=== PATIENT | female | born 1935 | race Caucasian/White ===

== ENCOUNTER 2022-01-03 07:09 | Outpatient (REF) | payer MEDICARE, BC, SELFPAY ==
[2022-01-03 11:18] LABS: MANUAL DIFF FLAG NO
[2022-01-03 11:23] LABS: Basophils Percent Auto 0.4 % (0-2); Eosinophils Absolute Auto 0.3 X10*3/uL (0.0-0.4); Eosinophils Percent Auto 3.3 % (0-4); Hematocrit 42.7 % (37.0-47.0); Hemoglobin 13.6 g/dl (12.0-16.0); Imm Gran Abs Auto 0.05 X10*3/uL (0.00-0.03); Imm Gran Pct Auto 0.6 % (0.0-0.4); Lymphocytes Absolute Auto 2.9 X10*3/uL (1.2-4.9); Lymphocytes Percent Auto 33.8 % (20-40); Mean Corpuscular HGB Conc 31.9 g/dl (31.0-35.0); Mean Corpuscular Hemoglobin 28.8 pg (27.0-33.0); Mean Corpuscular Volume 90.5 fL (80.0-98.0); Mean Platelet Volume 10.2 fL (9.4-12.3); Monocytes Absolute Auto 0.8 X10*3/uL (0.1-1.2); Monocytes Percent Auto 9.2 % (2-11); Neutrophils Absolute Auto 4.5 x10*3/uL (2.0-8.3); Neutrophils Percent Auto 52.7 % (45-73); Platelet Count 359 X10*3/uL (160-400); Red Blood Count 4.72 X10*6/uL (4.20-5.50); White Blood Count 8.5 X10*3/uL (4.8-10.8)
[2022-01-03 11:48] LABS: Alanine Aminotransferase 51 U/L (0-31); Alkaline Phosphatase 93 U/L (39-117); Anion Gap 11 (12-20); Aspartate Amino Transferase 36 U/L (5-31); Bilirubin Total 0.5 mg/dL (0.0-1.0); Blood Urea Nitrogen 10 mg/dL (9-16); Carbon Dioxide 26 mmol/L (22-29); Chloride 103 mmol/L (96-108); Cholesterol 210 mg/dL; Estimated Glomerular Filt Rate 57; Glucose Fasting 97 mg/dL (60-99); HDL Cholesterol 34 mg/dL; LDL Cholesterol Calculated 127 mg/dl; Potassium 4.8 mmol/L (3.3-5.1); Sodium 135 mmol/L (135-145); Total Protein 6.3 g/dL (6.5-8.0); Triglycerides 246 mg/dL
[2022-01-03 11:59] LABS: TSH reflex Free T4 1.62 uIU/mL (0.32-4.0)
[2022-01-03 12:10] LABS: Erythrocyte Sedimentation Rate 13 MM/HR (0-20)
== END 2022-01-03 07:10 | disposition home or self-care (01) ==
LOC: HO.WFDLDS 07:09
PROVIDERS: Visit Provider Family Medicine
DX: Z00.00 Encounter for general adult medical examination without abnormal findings (principal); R42 Dizziness and giddiness
CPT/HCPCS: 36415; 80053; 80061; 84443; 85025; 85652; 86141

== ENCOUNTER 2022-01-05 09:29 | Outpatient (REF) | payer MEDICARE, BC, SELFPAY ==
[2022-01-05 10:55] LABS: Appearance Urine HAZY; Color Urine YELLOW; Glucose Urine UA NEG (NEG); Leukocyte Esterase Urine 3+ (NEG); Nitrite Urine NEG (NEG); PH 7.5 (5.0-8.0); Specific Gravity - Urine 1.015 (1.005-1.025); Urine Blood NEG (NEG); Urine Ketones NEG (NEG); Urine Protein NEG (NEG-TRACE)
[2022-01-05 11:15] LABS: RBC Urine 0 /HPF (0); Squamous Epithelial Cell Urine 4+ /LPF
[2022-01-05 11:16] LABS: Bacteria Urine 1+ /LPF
== END 2022-01-05 09:30 | disposition home or self-care (01) ==
LOC: HO.WFDLNP 09:29
PROVIDERS: Visit Provider Family Medicine
DX: Z00.00 Encounter for general adult medical examination without abnormal findings (principal)
CPT/HCPCS: 81001

== ENCOUNTER 2022-02-23 15:58 | Outpatient (REF) | payer MEDICARE, BC, SELFPAY | END 2022-02-23 15:59 | disposition home or self-care (01) | LOC: HO.LAB 15:58 | PROVIDERS: Visit Provider Family Medicine | DX: Z13.89 Encounter for screening for other disorder (principal) ==

== ENCOUNTER 2022-05-10 08:18 | Outpatient (REF) | payer MEDICARE, BC, SELFPAY ==
[2022-05-10 12:15] LABS: Alanine Aminotransferase 36 U/L (0-31); Albumin Level 4.1 g/dL (3.5-5.0); Alkaline Phosphatase 86 U/L (39-117); Anion Gap 13 (12-20); Aspartate Amino Transferase 27 U/L (5-31); Bilirubin Total 0.7 mg/dL (0.0-1.0); Blood Urea Nitrogen 10 mg/dL (9-16); Calcium 9.4 mg/dL (8.4-10.2); Carbon Dioxide 26 mmol/L (22-29); Chloride 102 mmol/L (96-108); Estimated Glomerular Filt Rate > 60; Glucose Random 96 mg/dL (60-115); Potassium 4.7 mmol/L (3.3-5.1); Sodium 136 mmol/L (135-145); Total Protein 6.5 g/dL (6.5-8.0)
== END 2022-05-10 08:19 | disposition home or self-care (01) ==
LOC: HO.WFDLDS 08:18
PROVIDERS: Visit Provider Family Medicine
DX: R74.8 Abnormal levels of other serum enzymes (principal)
CPT/HCPCS: 36415; 80053

== ENCOUNTER 2022-05-18 12:02 | Outpatient (REF) | payer MEDICARE, BC, SELFPAY | END 2022-05-18 12:03 | disposition home or self-care (01) | LOC: HO.LAB 12:02 | PROVIDERS: Visit Provider Family Medicine | DX: Z13.89 Encounter for screening for other disorder (principal) ==

== ENCOUNTER 2022-06-07 08:12 | Outpatient (REF) | payer MEDICARE, BC, SELFPAY ==
[2022-06-07 12:05] LABS: Appearance Urine Clear; Color Urine Yellow; Glucose Urine UA Negative (Negative); Leukocyte Esterase Urine Negative (Negative); Nitrite Urine Negative (Negative); Urine Blood Negative (Negative); Urine Ketones Negative (Negative); Urine Protein Negative (Neg-Trace)
== END 2022-06-07 08:13 | disposition home or self-care (01) ==
LOC: HO.WFDLNP 08:12
PROVIDERS: Visit Provider Family Medicine
DX: Z00.00 Encounter for general adult medical examination without abnormal findings (principal); R82.71 Bacteriuria
CPT/HCPCS: 81003; 87086

== ENCOUNTER 2022-08-22 07:26 | Outpatient (REF) | payer MEDICARE, BC, SELFPAY ==
[2022-08-22 12:22] LABS: Alanine Aminotransferase 27 U/L (0-31); Albumin Level 4.1 g/dL (3.5-5.0); Alkaline Phosphatase 92 U/L (39-117); Anion Gap 14 (12-20); Aspartate Amino Transferase 23 U/L (5-31); Bilirubin Total 0.7 mg/dL (0.0-1.0); Blood Urea Nitrogen 9 mg/dL (9-16); Calcium 9.3 mg/dL (8.4-10.2); Carbon Dioxide 24 mmol/L (22-29); Chloride 103 mmol/L (96-108); Estimated Glomerular Filt Rate 58; Glucose Random 89 mg/dL (60-115); Potassium 4.8 mmol/L (3.3-5.1); Sodium 136 mmol/L (135-145); Total Protein 6.5 g/dL (6.5-8.0)
== END 2022-08-22 07:27 | disposition home or self-care (01) ==
LOC: HO.WFDLDS 07:26
PROVIDERS: Visit Provider Family Medicine
DX: R74.8 Abnormal levels of other serum enzymes (principal)
CPT/HCPCS: 36415; 80053

== ENCOUNTER 2023-03-01 08:57 | Outpatient (AMB) | payer MEDICARE, BC, SELFPAY ==
[2023-03-01 09:09] VITALS: BP 118/62; PULSE 81; O2SAT 96; BMI 27.8
--- NOTE | 2023-03-01 09:09 | A.OFFPC_ITS ---
Vital Signs 03/01/23 09:09 Height 5 ft 6 in Weight 172 lb 6 oz BMI 27.8 BP 118/62 Blood Pressure Location Lt brachial Position Sitting Pulse 81 Pulse Source Pulse Oximeter Pulse Oximetry (%) 96 Oxygen Delivery Method Room Air Intake Visit Reasons: f/u chronic conditions Intake Note: Patient is here for follow up on chronic conditions. Allergies No Known Allergies Allergy (Verified 03/01/23 09:11) Tobacco use date assessed: 03/01/23 Fall risk assessment: No Falls in past year Last assessed Fall Risk: 03/01/23 Dental Screening Dental Screen Date: 03/01/23 Did you have a dental visit in the last 12 months?: Yes Did you have a dental problem in the last 6 months where you did not have access to dental care?: No Was dental information given to patient?: Patient has dentist HPI f/u chronic conditions HPI Details Pt presents to f/u chronic conditions. Blood pressure today 118/62. [facility] Medical History Polio Surgical History History of hip replacement Social History Housing: House Patient Tobacco Use Status: Never used Tobacco e-Cigarette/Vaping Use: Never Used Second Hand Smoke Exposure: No service: No Current occupational status: retired Current occupational exposures/hazards: No Cognitive needs: No Hearing needs: No Vision needs: No Questionnaire PHQ-9 Over the last 2 weeks, how often have you been bothered by any of the following problems? 1. Little interest or pleasure in doing things: not at all 2. Feeling down, depressed, or hopeless: not at all 3. Trouble falling or staying asleep, or sleeping too much: not at all 4. Feeling tired or having little energy: not at all 5. Poor appetite or overeating: not at all 6. Feeling bad about yourself - or that you are a failure or have let yourself or your family down: not at all 7. Trouble concentrating on things, such as reading the newspaper or watching television: not at all 8. Moving or speaking so slowly that other people could have noticed. Or the opposite - being so fidgety or restless that you have been moving around a lot more than usual: not at all 9. Thoughts that you would be better off or of hurting yourself in some way: not at all Total score: 0 Source: Developed by Drs. Car Hayward, Óscar Patterson and colleagues, with an educational neil from [employer]. Thrive Questionnaire Date Thrive assessed: 07/20/22 I am a: Patient What is your living situation today?: I have a steady place to live Within the past 12 months, did the food you bought not last and you didn't have the money to get more?: Never true Within the past 12 months, did you worry whether your food would run out before you got money to buy more?: Never true Do you have trouble paying for medicines?: No Do you have trouble getting transportation to medical appointments?: No Do you have trouble paying your heating and electricity bill?: No Do you have trouble taking care of your child, family member or friend?: No Do you have trouble with day-to-day activities such as bathing, preparing meals, shopping, managing finances, etc.?: No Are you currently unemployed and looking for a job?: No Are you interested in more education?: No AUDIT C Alcohol Use Questionnaire (AUDIT-C) 1. How often do you have a drink containing alcohol?: Never 3. How often do you have six or more drinks on one occasion?: Never Total Score: 0 QUINN-7 AMB Questionnaire QUINN-7 Date QUINN - 7 assessed: 03/01/23 Feeling nervous, anxious, or on edge: 0 = Not at all Not being able to stop or control worryin = Not at all Worrying too much about different things: 0 = Not at all Trouble relaxin = Not at all Being so restless that it is hard to sit still: 0 = Not at all Becoming easily annoyed or irritable: 0 = Not at all Feeling afraid as if something awful might happen: 0 = Not at all Total QUINN-7 score (0-4 normal; 5-9 mild; 10-14 moderate; 15-21 severe): 0 Source: Developed by Ingrid Forbes Kurt Kroenke and colleagues, with an educational neil from [employer]. Review of Systems Const Denies chills, Denies fatigue, Denies fever(s), Denies headache(s) and Denies weakness ENT Denies dizziness and Denies headache(s) Card Denies chest pain, Denies lightheadedness, Denies dyspnea and Denies other (Palpitations) Resp Denies cough, Denies dyspnea, Denies wheezing and Denies other ( shortness of breath) Musc Denies numbness and Denies tingling Neuro Denies dizziness, Denies headache(s), Denies numbness, Denies tingling, Denies paresthesias and Denies weakness Psych Denies anxiety and Denies depression Endo Denies fatigue Aller/Immun Denies wheezing Physical exam (Primary Care) Vital Signs: Last Vital Signs Pulse 81 03/01/23 09:09 BP 118/62 03/01/23 09:09 Pulse Ox 96 03/01/23 09:09 Oxygen Delivery Method Room Air 03/01/23 09:09 BMI result Body Mass Index 27.8 Tobacco/Smoking Status: Tobacco use Status Tobacco use date assessed 03/01/23 03/01/23 09:12 Patient Tobacco Use Status Never used Tobacco 03/01/23 09:12 e-Cigarette/Vaping Use Never Used 03/01/23 09:12 PHQ-9: PHQ-9 Score PHQ-9: Total score 0 03/01/23 09:40 Thrive Assessment: Date of Thrive Assessment Date Thrive assessed 07/20/22 03/01/23 09:12 Const General: no acute distress and well developed Nutritional Appearance: well nourished Orientation/consciousness: patient oriented x3 HENMT Head: Yes normocephalic and Yes atraumatic Eyes General: appearance normal, both eyes and all related structures Pupils: Equal, round and reactive pupils present EOM: EOMs intact bilaterally Resp Effort & Inspection: normal respiratory effort Auscultation: clear to auscultation bilaterally Cardio Rate: regular rate Rhythm: regular rhythm Heart sounds: S1 normal heart sound present, S2 normal heart sound present, no gallops, no murmurs and no rubs Neuro General: patient oriented x3 and gait normal Cranial nerves: Yes Equal, round and reactive pupils present Psych Affect: normal affect Assessment and Plan Assessment & Plan (1) Hypertension: Code(s): I10 - Essential (primary) hypertension Plan: Patient has lost weight and blood pressure remains well controlled off any medications. Continue weight control, healthy diet low in salt/sodium and exercise as tolerated (2) Elevated liver enzymes: Code(s): R74.8 - Abnormal levels of other serum enzymes Plan: Liver enzymes had normalized at last check. She had lost significant amount of weight Continue weight control (3) Back pain: Code(s): M54.9 - Dorsalgia, unspecified Plan: History of some back pain which affects her walking Offered physical therapy but she declines at this time She will let me know if she wants to start physical therapy (4) Shortness of breath: Code(s): R06.02 - Shortness of breath Plan: Mild shortness of breath with exertion - this is a longstanding and not associated with any chest pain, weakness, dizziness or diaphoresis. Continue exercise as tolerated She will let me know if anything changes or she has any new concerns. Orders: Orders Comprehensive Powell. Panel Fast Today Z00.00 - Encounter for general adult medical examination without abnormal findings Lipid Panel Today Z00.00 - Encounter for general adult medical examination without abnormal findings TSH reflex Free T4 Today Z00.00 - Encounter for general adult medical examination without abnormal findings Microalbumin, Random (w Creat) Today I10 - Essential (primary) hypertension Complete Blood Count Auto Diff Today Z00.00 - Encounter for general adult medical examination without abnormal findings UA and rflx microscopic Today Z00.00 - Encounter for general adult medical examination without abnormal findings Coding Level of Care Code Est Pt Level 4 (06612) Diagnoses Hypertension I10 Elevated liver enzymes R74.8 Back pain M54.9 Shortness of breath R06.02
== END 2023-03-01 09:55 | disposition home or self-care (01) ==
PROVIDERS: PCP Family Medicine; Visit Provider Family Medicine
DX: I10 Essential (primary) hypertension (principal); R74.8 Abnormal levels of other serum enzymes; M54.9 Dorsalgia, unspecified; R06.02 Shortness of breath
CPT/HCPCS: 99214

== ENCOUNTER 2023-03-08 08:28 | Outpatient (REF) | payer MEDICARE, BC, SELFPAY ==
[2023-03-08 11:36] LABS: MANUAL DIFF FLAG NO
[2023-03-08 12:07] LABS: Appearance Urine Cloudy; Color Urine Yellow; Glucose Urine UA Negative (Negative); Leukocyte Esterase Urine Moderate (2+) (Negative); Nitrite Urine Negative (Negative); UMIC TRIGGER UA YES; Urine Blood Negative (Negative); Urine Ketones Negative (Negative); Urine Protein Trace mg/dL (Neg-Trace)
[2023-03-08 12:08] LABS: Basophils Percent Auto 0.4 % (0-2); Eosinophils Absolute Auto 0.2 X10*3/uL (0.0-0.4); Eosinophils Percent Auto 3.1 % (0-4); Hematocrit 42.3 % (37.0-47.0); Hemoglobin 13.8 g/dl (12.0-16.0); Imm Gran Abs Auto 0.04 X10*3/uL (0.00-0.03); Imm Gran Pct Auto 0.5 % (0.0-0.4); Lymphocytes Absolute Auto 2.5 X10*3/uL (1.2-4.9); Lymphocytes Percent Auto 31.5 % (20-40); Mean Corpuscular HGB Conc 32.6 g/dl (31.0-35.0); Mean Corpuscular Hemoglobin 28.6 pg (27.0-33.0); Mean Corpuscular Volume 87.8 fL (80.0-98.0); Mean Platelet Volume 9.8 fL (9.4-12.3); Monocytes Absolute Auto 0.7 X10*3/uL (0.1-1.2); Monocytes Percent Auto 9.3 % (2-11); Neutrophils Absolute Auto 4.3 x10*3/uL (2.0-8.3); Neutrophils Percent Auto 55.2 % (45-73); Platelet Count 374 X10*3/uL (160-400); Red Blood Count 4.82 X10*6/uL (4.20-5.50); Red Cell Distribution Width 14.2 % (11.0-16.0); White Blood Count 7.8 X10*3/uL (4.8-10.8)
[2023-03-08 12:10] LABS: Bacteria Urine 4+ (None Seen); Hyaline Casts Urine 0-2 /LPF (0-2); RBC Urine 0-2 /HPF (0-2); Squamous Epithelial Cell Urine >20 /HPF (0-2); WBC Urine >50 /HPF (0-5)
[2023-03-08 12:37] LABS: Alanine Aminotransferase 20 U/L (0-31); Albumin Level 4.1 g/dL (3.5-5.0); Alkaline Phosphatase 78 U/L (39-117); Anion Gap 12 (12-20); Aspartate Amino Transferase 19 U/L (5-31); Bilirubin Total 0.7 mg/dL (0.0-1.0); Blood Urea Nitrogen 12 mg/dL (9-16); Calcium 9.6 mg/dL (8.4-10.2); Carbon Dioxide 24 mmol/L (22-29); Chloride 104 mmol/L (96-108); Cholesterol 223 mg/dL (<200); Estimated Glomerular Filt Rate 59; Glucose Fasting 92 mg/dL (60-99); HDL Cholesterol 40 mg/dL (>40); LDL Cholesterol Calculated 139 mg/dL (<100); Potassium 4.3 mmol/L (3.3-5.1); Sodium 136 mmol/L (135-145); TSH reflex Free T4 1.55 uIU/mL (0.32-4.0); Total Protein 6.7 g/dL (6.5-8.0); Triglycerides 224 mg/dL (<150)
[2023-03-08 13:14] LABS: Creatinine Urine 159.78 mg/dL; Microalbum/Creatinine Ratio Ur 16.8 ug/mg cr (<30)
== END 2023-03-08 08:29 | disposition home or self-care (01) ==
LOC: HO.WFDLDS 08:28
PROVIDERS: Visit Provider Family Medicine
DX: Z00.00 Encounter for general adult medical examination without abnormal findings (principal); I10 Essential (primary) hypertension
CPT/HCPCS: 36415; 80053; 80061; 81001; 82043; 82570; 84443; 85025

== ENCOUNTER 2024-10-06 05:01 | Inpatient (IN) | payer MEDICARE, BC, SELFPAY ==
[2024-10-06] VITALS (7 sets, daily range): BP systolic 178–199; BP diastolic 80–88; PULSE 87–105; RESP 16–20; TEMP 36.2–36.8; O2SAT 93–96; BMI 29.4; BMI 28.2
--- NOTE | ~2024-10-06 | CT_ITS ---
CLINICAL HISTORY: Stroke Protocol - LEFT SIDED WEAKNESS CT head without contrast Comparison: None Findings: No intra-axial mass, midline shift, hydrocephalus, or acute hemorrhage. No significant atrophy-like change or white matter disease. There is no sinus or mastoid fluid. The orbits are unremarkable. There is no acute fracture. IMPRESSION: 1. No acute intracranial findings. This document has been electronically signed by: Hector Davis MD on 10/06/2024 05:19:10
--- NOTE | ~2024-10-06 | US_ITS ---
CLINICAL HISTORY: swelling and pain at iv site Venous duplex ultrasound right upper extremity Comparison: None Findings: Accessible deep venous segments are fully compressible with normal Doppler color flow and spectral tracings. IMPRESSION: 1. Negative for right upper extremity deep vein thrombosis. This document has been electronically signed by: Hector Davis MD on 10/06/2024 08:51:30
--- NOTE | ~2024-10-06 | CT_ITS ---
CLINICAL HISTORY: Stroke Protocol:left sided weakness CT angiography head and neck with contrast. 3D Postprocessing. Comparison: None Findings: Aortic arch and cervical great vessels are patent with no aneurysm, dissection, hemodynamically significant stenoses, or occlusion. Intracranial arteries are patent. No aneurysm, dissection, hemodynamically significant stenoses, or occlusion. No abnormal intracranial enhancement. The visualized thyroid gland is unremarkable. No cervical mass or fluid collection. Lung apices clear. No acute fracture. IMPRESSION: Patent head and neck CTA. This document has been electronically signed by: Hector Davis MD on 10/06/2024 06:12:04
--- NOTE | ~2024-10-06 | MR_ITS ---
CLINICAL HISTORY: L weakness, CVA MR Brain without gadolinium Comparison: None Findings: There is a small, faint focus of restricted diffusion involving the lateral right thalamus. There is corresponding low signal on the ADC map. There is mild T2 signal prolongation within this region. Additional patchy scattered T2 signal prolongation. No intra-axial mass or hemorrhage. No midline shift. No hydrocephalus. Vascular flow voids are intact. The orbits are normal. The sinuses and mastoid air cells are unremarkable. No focal bone lesion. IMPRESSION: There is a small focal , late acute infarct involving the right thalamus. Moderate ischemic microangiopathy and volume loss. No intracranial hemorrhage identified. This document has been electronically signed by: Bk Gayle MD on 10/06/2024 10:58:01
--- NOTE | 2024-10-06 05:02 | ECG_ITS ---
Test Reason : STROKE ALERT Blood Pressure : */* mmHG Vent. Rate : 101 BPM Atrial Rate : 101 BPM P-R Int : 164 ms QRS Dur : 130 ms QT Int : 410 ms P-R-T Axes : 59 -50 112 degrees QTcB Int : 531 ms Sinus tachycardia Left axis deviation Left bundle branch block Abnormal ECG No previous ECGs available Referred By: Jorge Luis Jaeger Electronically Signed By: Ghulam Bryant
[2024-10-06] MEDS: iohexoL 350 MG/ML 100 ML INFUS..BTL 70 ML IV (05:13)
--- NOTE | 2024-10-06 05:22 | ED.NEUROSD ---
HPI - Neuro Symptoms/Deficit General Chief Complaint: Stroke Stated Complaint: stroke Time Seen by Provider: 10/06/24 05:02 Source: patient Mode of arrival: ambulatory Limitations: no limitations History of Present Illness ED Provider: HPI Narrative: Patient with no significant past medical history does not take any medication since 14:00 10/05/2024 patient noticed slight weakness of the left side patient's thought it will get better was able to ambulate initially went to sleep woke up at 02:00 and unable to walk because of significant left-sided weakness unable to hold her weight on the left side also has weakness of the face in the left side and left upper extremity no headache patient does not take any blood thinner Related Data Home Medications ?Medication ?Instructions ?Recorded ?Confirmed No Known Home Meds 03/01/23 03/01/23 Allergies Allergy/AdvReac Type Severity Reaction Status Date / Time No Known Allergies Allergy Verified 10/06/24 05:08 Review of Systems Review of Systems: Yes all other systems are reviewed and are negative PMFSH Past Medical History Medical History Polio Surgical History History of hip replacement Social History Social History Housing: House Patient Tobacco Use Status: Never used Tobacco Smoked in Last 30 Days: No e-Cigarette/Vaping Use: Never Used Second Hand Smoke Exposure: No Use of substances other than those prescribed or required for medical reasons: No Advance Directives: No Advance Directives Information Provided: Yes service: No Current occupational status: retired Current occupational exposures/hazards: No Cognitive needs: No Hearing needs: No Vision needs: No Physical Exam Vital Signs: Vital Signs: Last Vital Signs Temp 97.5 F 10/06/24 05:09 Pulse 92 10/06/24 06:01 Resp 20 10/06/24 06:01 BP 191/80 H 10/06/24 06:01 Pulse Ox 96 10/06/24 06:01 O2 Del Method Room Air 10/06/24 06:01 BMI result Body Mass Index 28.2 Appearance: Alert. Oriented X3. No acute distress. Eyes: PERRLA, No Nystagmus ENT: Pharynx normal. Oral Mucosa moist left facial droop Neck: Normal inspection. Neck supple. CVS: Normal heart rate and rhythm. Pulses normal. Respiratory: No respiratory distress. Equal air entry bilateral, no wheezing/rales/rhonchi Abdomen: Soft and nontender. Bowel sounds are present, no mass palpable, no CVA tenderness Skin: Skin warm and dry. Normal skin color. Normal skin turgor. Extremities: No lower extremity edema. No calf tenderness Neuro: Oriented X 3. 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 10/06/24 05:36 10/06/24 05:36 Labs: Lab Results 10/06/24 10/06/24 Range/Units 05:36 06:03 WBC 9.8 (4.8-10.8) X10*3/uL RBC 4.74 (4.20-5.50) X10*6/uL Hgb 14.1 (12.0-16.0) g/dl Hct 41.2 (37.0-47.0) % MCV 86.9 (80.0-98.0) fL MCH 29.7 (27.0-33.0) pg MCHC 34.2 (31.0-35.0) g/dl RDW 13.9 (11.0-16.0) % Plt Count 331 (160-400) X10*3/uL MPV 9.5 (9.4-12.3) fL Immature Gran % (Auto) 0.5 H (0.0-0.4) % Neut % (Auto) 69.5 (45-73) % Lymph % (Auto) 21.7 (20-40) % Runnels % (Auto) 7.2 (2-11) % Eos % (Auto) 0.6 (0-4) % Baso % (Auto) 0.5 (0-2) % Lymph # (Auto) 2.1 (1.2-4.9) X10*3/uL Runnels # (Auto) 0.7 (0.1-1.2) X10*3/uL Eos # (Auto) 0.1 (0.0-0.4) X10*3/uL Baso # (Auto) 0.1 (0.0-0.2) X10*3/uL Abs Immat Gran (auto) 0.05 H (0.00-0.03) X10*3/uL Absolute Neuts (auto) 6.8 (2.0-8.3) x10*3/uL Absolute Nucleated RBC 0.000 (0.0-0.012) X10*3/uL Nucleated RBC % (auto) 0.0 (0.0-0.2) /100WBC PT 12.4 (10.9-12.4) SEC INR 1.1 (0.9-1.1) APTT 24.3 L (26.0-36.8) SEC Sodium 133 L (135-145) mmol/L Potassium 4.9 (3.3-5.1) mmol/L Chloride 105 (96-108) mmol/L Carbon Dioxide 20 L (22-29) mmol/L Anion Gap 13 (12-20) BUN 12 (9-16) mg/dL Creatinine 0.87 (0.5-1.4) mg/dL Estim Creat Clear Calc 47.4 Estimated GFR > 60 Random Glucose 103 (60-115) mg/dL Calcium 8.9 D (8.4-10.2) mg/dL Total Bilirubin 0.5 (0.0-1.0) mg/dL Direct Bilirubin 0.1 (0.0-0.5) mg/dL AST 40 H (5-31) U/L ALT 41 H (0-31) U/L Alkaline Phosphatase 73 (39-117) U/L Troponin I High Sens 7.6 (<3.5-17.0) ng/L Total Protein 6.8 (6.5-8.0) g/dL Albumin 4.0 (3.5-5.0) g/dL Triglycerides 231 H (<150) mg/dL Cholesterol 205 H (<200) mg/dL LDL Cholesterol, Calc 123 H (<100) mg/dL HDL Cholesterol 36 L (>40) mg/dL Urine Color Yellow Urine Appearance Clear Urine pH 7.5 (5.0-9.0) Ur Specific [place] >= 1.030 H (1.005-1.025) Urine Protein Trace (Neg-Trace) mg/dL Urine Glucose (UA) Negative (Negative) mg/dL Urine Ketones Negative (Negative) mg/dL Urine Blood Negative (Negative) Urine Nitrite Negative (Negative) Ur Leukocyte Esterase Moderate (2+) H (Negative) Urine RBC 0-2 (0-2) /HPF Urine WBC >50 H (0-5) /HPF Ur Squamous Epith Cells 11-20 (0-2) /HPF Urine Bacteria 2+ (None Seen) Hyaline Casts 0-2 (0-2) /LPF Independent Interpretation I performed an independent interpretation of an: EKG Interpretation: Sinus rhythm heart rate 101 beats per minute left axis deviation left bundle-branch block no acute STT wave changes no acute ischemia Radiology Impression Discussion of test interpretation with radiology: I have reviewed the radiologist's reading. Radiologist Impression: [place] [address] [address] Scan Report Signed Patient: Sanjuana Brennan MR#: [id number] : 1935 Acct:[id number] Age/Sex: 89 / F ADM Date: 10/06/24 Loc: .ED Attending Dr: Ordering Physician: Jorge Luis Jaeger MD Date of Service: 10/06/24 Procedure(s): CT angio head neck STROKE Accession Number(s): [id number] cc: Roland Walsh MD; Jorge Luis Jaeger MD~ Report Number: [id number]: Total DLP = 660.00 mGy-cm CLINICAL HISTORY: Stroke Protocol:left sided weakness CT angiography head and neck with contrast. 3D Postprocessing. Comparison: None Findings: Aortic arch and cervical great vessels are patent with no aneurysm, dissection, hemodynamically significant stenoses, or occlusion. Intracranial arteries are patent. No aneurysm, dissection, hemodynamically significant stenoses, or occlusion. No abnormal intracranial enhancement. The visualized thyroid gland is unremarkable. No cervical mass or fluid collection. Lung apices clear. No acute fracture. IMPRESSION: Patent head and neck CTA. This document has been electronically signed by: Hector Davis MD on 10/06/2024 06:12:[address] [place] [address] [address] Scan Report Signed with Addenda Patient: Sanjuana Brennan MR#: [id number] : 1935 Acct:[id number] Age/Sex: 89 / F ADM Date: 10/06/24 Loc: HO.ED Attending Dr: Ordering Physician: Jorge Luis Jaeger MD Date of Service: 10/06/24 Procedure(s): CT head for STROKE Accession Number(s): [id number] cc: Roland Walsh MD; Jorge Luis Jaeger MD~ Report Number: [id number]: Total DLP = 648.00 mGy-cm ADDENDUMThis document has been electronically signed by: Hector Davis MD on 10/06/2024 05:19:10 ADDENDUM: This report was discussed with Mil Flanagan on Oct 06, 2024 05:22:00 EDT. This document has been electronically signed by: Yaritza Montgomery on 10/06/2024 05:22:23 Addendum Dictated By: Hector Davis MD Addendum Signed By: <Electronically signed by Hector Davis MD in OV> 10/06/24522 Addendum Cosigned By: DD/ TD/TT: 10/06/24 CLINICAL HISTORY: Stroke Protocol - LEFT SIDED WEAKNESS CT head without contrast Comparison: None Findings: No intra-axial mass, midline shift, hydrocephalus, or acute hemorrhage. No significant atrophy-like change or white matter disease. There is no sinus or mastoid fluid. The orbits are unremarkable. There is no acute fracture. IMPRESSION: 1. No acute intracranial findings. This document has been electronically signed by: Hector Davis MD on 10/06/2024 05:19:10 NIH Stroke Scale Internal: Initial- Upon Arrival Time: 05:00 Level of Consciousness: Alert Level of Consciousness Questions: Answers both questions correctly Level of Consciousness Commands: Performs both tasks correctly Best Gaze: Normal Visual: No visual loss Facial Palsy: Partial paralysis Motor Arm (Right): No drift Motor Arm (Left): Drift Motor Leg (Right): No drift Motor Leg (Left): Drift Limb Ataxia: Absent Sensory: Normal Best Language: No aphasia Dysarthia: Normal Extinction and Inattention: No abnormality Score: 4 Discharge Plan Discharge Clinical Impression: Cerebrovascular accident Patient Disposition: Admitted As Inpatient Print Language: [place]
[2024-10-06] MEDS: Aspirin 81 MG TAB.CHEW 324 MG PO (05:26)
[2024-10-06 05:41] LABS: Basophils Absolute Auto 0.1 X10*3/uL (0.0-0.2); Basophils Percent Auto 0.5 % (0-2); Eosinophils Absolute Auto 0.1 X10*3/uL (0.0-0.4); Eosinophils Percent Auto 0.6 % (0-4); Hematocrit 41.2 % (37.0-47.0); Hemoglobin 14.1 g/dl (12.0-16.0); Imm Gran Abs Auto 0.05 X10*3/uL (0.00-0.03); Imm Gran Pct Auto 0.5 % (0.0-0.4); Lymphocytes Absolute Auto 2.1 X10*3/uL (1.2-4.9); Lymphocytes Percent Auto 21.7 % (20-40); MANUAL DIFF FLAG NO; Mean Corpuscular HGB Conc 34.2 g/dl (31.0-35.0); Mean Corpuscular Hemoglobin 29.7 pg (27.0-33.0); Mean Corpuscular Volume 86.9 fL (80.0-98.0); Mean Platelet Volume 9.5 fL (9.4-12.3); Monocytes Absolute Auto 0.7 X10*3/uL (0.1-1.2); Monocytes Percent Auto 7.2 % (2-11); Neutrophils Absolute Auto 6.8 x10*3/uL (2.0-8.3); Neutrophils Percent Auto 69.5 % (45-73); Platelet Count 331 X10*3/uL (160-400); Red Blood Count 4.74 X10*6/uL (4.20-5.50); Red Cell Distribution Width 13.9 % (11.0-16.0); White Blood Count 9.8 X10*3/uL (4.8-10.8)
[2024-10-06 05:46] LABS: INTERNATIONAL NORM RATIO 1.1 (0.9-1.1); Prothrombin Time 12.4 SEC (10.9-12.4)
[2024-10-06 05:49] LABS: Partial Thromboplastin Time 24.3 SEC (26.0-36.8)
[2024-10-06 06:00] LABS: Troponin-I High Sensitivity 7.6 ng/L (<3.5-17.0)
[2024-10-06 06:06] LABS: Stroke Lab Use COMPLETE
[2024-10-06 06:12] LABS: Appearance Urine Clear; Color Urine Yellow; Glucose Urine UA Negative (Negative); Leukocyte Esterase Urine Moderate (2+) (Negative); Nitrite Urine Negative (Negative); PH 7.5 (5.0-9.0); Specific Gravity - Urine >= 1.030 (1.005-1.025); UMIC TRIGGER UA YES; Urine Blood Negative (Negative); Urine Ketones Negative (Negative); Urine Protein Trace mg/dL (Neg-Trace)
[2024-10-06 06:16] LABS: Bacteria Urine 2+ (None Seen); Hyaline Casts Urine 0-2 /LPF (0-2); RBC Urine 0-2 /HPF (0-2); WBC Urine >50 /HPF (0-5)
[2024-10-06 06:32] LABS: Alanine Aminotransferase 41 U/L (0-31); Alkaline Phosphatase 73 U/L (39-117); Anion Gap 13 (12-20); Aspartate Amino Transferase 40 U/L (5-31); Bilirubin Direct 0.1 mg/dL (0.0-0.5); Bilirubin Total 0.5 mg/dL (0.0-1.0); Blood Urea Nitrogen 12 mg/dL (9-16); Calcium 8.9 mg/dL (8.4-10.2); Carbon Dioxide 20 mmol/L (22-29); Chloride 105 mmol/L (96-108); Cholesterol 205 mg/dL (<200); Creatinine Clr Calc Pharmacy 47.4; Estimated Glomerular Filt Rate > 60; Glucose Random 103 mg/dL (60-115); HDL Cholesterol 36 mg/dL (>40); LDL Cholesterol Calculated 123 mg/dL (<100); Potassium 4.9 mmol/L (3.3-5.1); Sodium 133 mmol/L (135-145); Total Protein 6.8 g/dL (6.5-8.0); Triglycerides 231 mg/dL (<150)
--- NOTE | 2024-10-06 06:59 | PM.IMHP ---
History of Present Illness Date of Service: 10/06/24 Attending physician on admission: Donaldo Rice Chief Complaint: L weakness Patient is an 89-year-old female with a past medical history significant for HTN (no meds), history of polio, and COPD stage I, who presented to the ED due to left-sided weakness starting yesterday. The patient reports that she was feeling off around 14:00 and took a nap. She reports that she went on throughout her day and was able to walk but felt weak. Around 02:00 she woke up to urinate and describes much more significant left lower extremity weakness with a left-sided facial droop and was unable to get out of bed. She denies any headache, shortness of breath, chest pain. No recent illness. She has had some urinary frequency but denies any dysuria or urgency. She has a diagnosis of hypertension but does not take any medications reports this is diet controlled. The patient is a poor historian. Review of Systems Constitutional: Constitutional: Denies body ache(s), Denies chills, Denies fatigue, Denies fever(s) and Denies headache(s) Eyes: Eyes: Denies change in vision, Denies loss of vision and Denies photophobia ENT: Denies headache(s), Denies nasal congestion, Denies nasal discharge and Denies sore throat Cardiovascular: Cardiovascular: Denies chest pain, Denies rapid heart rate, Denies leg edema, Denies lightheadedness and Denies dyspnea Respiratory: Respiratory: Denies chest congestion, Denies cough, Denies dyspnea and Denies wheezing Gastrointestinal: Gastrointestinal: Denies diarrhea, Denies nausea and Denies vomiting Genitourinary: Genitourinary: Denies dysuria and Denies urinary urgency Comments: urinary frequency Musculoskeletal: Musculoskeletal: Denies back pain, Denies myalgias and Denies muscle cramps Integumentary/Breasts: Skin/Breast: Denies rash Neurologic: Denies headache(s), Denies loss of vision and Denies memory loss Psychiatric: Psychiatric: Denies memory loss Endocrine: Endocrine: Denies fatigue Hematologic/Lymphatic: Hematologic/Lymphatic: Denies easy bleeding and Denies easy bruising Allergic/Immunologic: Allergic/Immunologic: Denies wheezing [facility] Medical History (Updated 10/06/24 @ 07:05 by Yany Hurley PA-C) HTN (hypertension), benign Polio Functional capacity: independent ambulation Surgical History History of hip replacement Social History Housing: House Patient Tobacco Use Status: Never used Tobacco Smoked in Last 30 Days: No e-Cigarette/Vaping Use: Never Used Second Hand Smoke Exposure: No Use of substances other than those prescribed or required for medical reasons: No Advance Directives: No Advance Directives Information Provided: Yes service: No Current occupational status: retired Current occupational exposures/hazards: No Cognitive needs: No Hearing needs: No Vision needs: No Narrative: No smoking, alcohol or drug use Meds Allergies Allergy/AdvReac Type Severity Reaction Status Date / Time No Known Allergies Allergy Verified 10/06/24 05:08 Active Medications: Current Medications Acetaminophen (Acetaminophen 325 Mg Tablet) 975 mg PO Q6H PRN PRN Reason: Pain, Mild 1-3,fever,headache Aspirin (Aspirin Enteric Coated 81 Mg Tablet.Dr) 81 mg PO DAILY JANINA Calcium Carbonate (Calcium Carbonate 750 Mg Tab.Chew) 750 mg PO Q4H PRN PRN Reason: Heartburn Ceftriaxone Sodium (Ceftriaxone Sodium 1 Gm Vial) 1 gm IVPUSH Q24H JANINA Enoxaparin Sodium (Enoxaparin Sodium 40 Mg/0.4 Ml Syringe) 40 mg SUBCUT Q24H JANINA Magnesium Hydroxide (Milk Of Magnesia 30 Ml Oral.Susp) 30 ml PO DAILY PRN PRN Reason: Constipation Melatonin (Melatonin 3 Mg Tablet) 6 mg PO BEDTIME PRN PRN Reason: Insomnia Sodium Chloride (0.9 % Sodium Chloride Flush 3 Ml Syringe) 3 ml IVFLUSH QSHIFT JANINA Home Medications ?Medication ?Instructions ?Recorded ?Confirmed ?Last Taken ?Type No Known Home Meds 03/01/23 03/01/23 Unknown History Physical Exam Vital Signs and Narrative: Vital Signs: Last Vital Signs Temp 97.5 F 10/06/24 05:09 Pulse 92 10/06/24 06:01 Resp 20 10/06/24 06:01 BP 191/80 H 10/06/24 06:01 Pulse Ox 96 10/06/24 06:01 O2 Del Method Room Air 10/06/24 06:01 BMI result Body Mass Index 28.2 General: AOx3, no acute distress, seen with bedside Resp: CTA bilaterally CVS: S1, S2, RRR GI: +BS, NT, no distention Skin: Warm, dry Neuro: Pupils equal round and reactive to light, mild decreased sensation left side of face. Mild tongue deviation to the right. ? Dysarthria. Visual bañuelos affected left side. Motor grossly intact bilaterally. Decreased strength in left upper extremity, more significant and left lower extremity especially with dorsiflexion and plantar flexion. Extremities: No LE edema Psych: Appropriate affect Eyes: Direct Ophthalmoscopy: No photophobia Results Labs 10/06/24 05:36 10/06/24 05:36 Labs: Laboratory Results - last 24 hr 10/06/24 10/06/24 05:36 06:03 MCV 86.9 MCH 29.7 MCHC 34.2 RDW 13.9 Plt Count 331 MPV 9.5 Immature Gran % (Auto) 0.5 H Neut % (Auto) 69.5 Lymph % (Auto) 21.7 Ashley % (Auto) 7.2 Eos % (Auto) 0.6 Baso % (Auto) 0.5 Lymph # (Auto) 2.1 Ashley # (Auto) 0.7 Eos # (Auto) 0.1 Baso # (Auto) 0.1 Abs Immat Gran (auto) 0.05 H Absolute Neuts (auto) 6.8 Absolute Nucleated RBC 0.000 Nucleated RBC % (auto) 0.0 PT 12.4 INR 1.1 APTT 24.3 L Anion Gap 13 Estim Creat Clear Calc 47.4 Estimated GFR > 60 Random Glucose 103 Calcium 8.9 D Total Bilirubin 0.5 Direct Bilirubin 0.1 AST 40 H ALT 41 H Alkaline Phosphatase 73 Total Protein 6.8 Albumin 4.0 Triglycerides 231 H Cholesterol 205 H LDL Cholesterol, Calc 123 H HDL Cholesterol 36 L Urine Color Yellow Urine Appearance Clear Urine pH 7.5 Ur Specific [place] >= 1.030 H Urine Protein Trace Urine Glucose (UA) Negative Urine Ketones Negative Urine Blood Negative Urine Nitrite Negative Ur Leukocyte Esterase Moderate (2+) H Urine RBC 0-2 Urine WBC >50 H Ur Squamous Epith Cells 11-20 Urine Bacteria 2+ Hyaline Casts 0-2 Assessment and Plan (1) Left-sided weakness: Status: Acute (2) CVA (cerebral vascular accident): Status: Acute (3) UTI (urinary tract infection): Status: Acute Plan Patient is an 89-year-old female with a past medical history significant for HTN (no meds), history of polio, and COPD stage I, who presented to the ED due to left-sided weakness starting yesterday. L sided weakness, likely CVA - CT head and CTA head/neck negative - UA +, culture pending - EKG with LBBB and sinus tach - neuro checks Q2H - monitor on tele - MRI brain - neuro consult - monitor on tele - echo - given ASA 325 in ED, start 81mg QD - lipids elevated, will need to start statin UTI - UA+, culture pending - ceftriaxone 1g QD - WBC normal, vitals stable, no sepsis - lactic and blood cultures x2 pending HTN - allow elevated BP today, consider adding antihypertensive if persistent COPD stage 1, no acute exacerbation - continue home meds full code VTE prophy: lovenox Pt with L sided weakness, likely CVA, complicated by UTI, reuqiring admission for at least 2 midnights stay for further evaluation and monitoring. Quality Stroke Does the patient have a stroke diagnosis?: Yes Reason for No Anti-thrombotic by Day Two: Contraindicated VTE Prior VTE?: No VTE Risk Level:: Medical - moderate - high VTE Device Contraindication: Treatment Not Indicated VTE Drug Contraindication: N/A - Med Ordered
[2024-10-06] MEDS: 0.9 % Sodium Chloride Flush 3 ML SYRINGE IVFLUSH ×2 (07:16→15:20)
[2024-10-06] MEDS: Enoxaparin Sodium 40 MG/0.4 ML SYRINGE SUBCUT (07:16)
[2024-10-06] MEDS: cefTRIAXone sodium 1 GM VIAL IVPUSH (07:17)
--- NOTE | 2024-10-06 07:22 | PC.NURSE ---
It was reported to this RN thie morning on hand-off that pt's R AC IV infiltrated during her CT scan and IV was removed, area hot-packed; on inspection, pt's R upper arm and AC area are hard and hot to the touch with indurated borders around extravisated CT dye; + brachial pulse on palpation; pt reports moderate pain to the area; message sent to admitting provider; awaiting response
--- NOTE | 2024-10-06 08:59 | PC.NURSE ---
MRI screening form completed with pt/SO and faxed
[2024-10-06] MEDS: diazePAM 10 MG/2 ML CARTRIDGE 2.5 MG IVPUSH (09:37)
--- NOTE | 2024-10-06 09:39 | PC.NURSE ---
Pt to MRI
[2024-10-06 09:53] LABS: Lactic Acid 1.3 mmol/L (0.5-2.0)
--- NOTE | 2024-10-06 10:31 | PHA.MEDREC ---
Addendum entered by Courtney Gilbert RPh 10/06/24 10:32: MED REC REVIEWED BY ROBIN Original Note: Pharmacy Consult ? Medication Reconciliation Pharmacy has completed the medication reconciliation. Patient's spouse (Lamont) reports no rx or OTC medications.
--- NOTE | 2024-10-06 14:52 | PM.EVENT ---
Event Note Date of Service: 10/06/24 Event Note: pt seen and examined, labs meds, imaging reviewed. MRI revealed a small focal , late acute infarct involving the right thalamus. Moderate ischemic microangiopathy and volume loss. continue ASA, add statin, allow permissive HTN, PT, OT eval in am. Neurochecks Time Spent With Patient Time: Total time managing care of this patient today ____ minutes.
[2024-10-06] MEDS: Atorvastatin Calcium 40 MG TABLET PO (15:20)
--- NOTE | 2024-10-06 15:25 | P.CNNE_ITS ---
History of Present Illness Data of Consult Service Date: 10/06/24 Primary Care Provider: Roland Walsh MD [facility] Reason for consult: Left sided weakness since yesterday This is an 89-year-old female with a h/o HTN (no meds), polio, and COPD stage I, who presented to the ED due to left-sided weakness starting yesterday. The patient reports that she was feeling off around 14:00 and took a nap. She reports that she went on throughout her day and was able to walk but felt weak. Around 02:00 she woke up to urinate and describes much more significant left lower extremity weakness with a left-sided facial droop and was unable to get out of bed. She denies any headache, shortness of breath, chest pain. She has had some urinary frequency but denies any dysuria or urgency. She has a diagnosis of hypertension but does not take any medications reports this is diet controlled. The patient is a poor historian. CTA of head and neck negative. MRI shows an acute right lateral thalamic -posterior capsular infarct, and modest microvascular disease PMF Past Medical History Medical History (Updated 10/06/24 @ 07:05 by Yany Hurley PA-C) HTN (hypertension), benign Polio Surgical History Surgical History History of hip replacement Social History Social History Household Members: Spouse Housing: House Do you presently have visiting nurse or other home services: No Patient Tobacco Use Status: Never used Tobacco e-Cigarette/Vaping Use: Never Used Second Hand Smoke Exposure: No service: No Current occupational status: retired Current occupational exposures/hazards: No Cognitive needs: No Hearing needs: No Vision needs: No Meds Allergies Allergy/AdvReac Type Severity Reaction Status Date / Time No Known Allergies Allergy Verified 10/06/24 05:08 Active Medications: Current Medications Acetaminophen (Acetaminophen 325 Mg Tablet) 975 mg PO Q6H PRN PRN Reason: Pain, Mild 1-3,fever,headache Aspirin (Aspirin Enteric Coated 81 Mg Tablet.) 81 mg PO DAILY [facility] Atorvastatin Calcium (Atorvastatin Calcium 40 Mg Tablet) 40 mg PO DAILY [facility] Last Admin: 10/06/24 15:20 Dose: 40 mg Calcium Carbonate (Calcium Carbonate 750 Mg Tab.Chew) 750 mg PO Q4H PRN PRN Reason: Heartburn Ceftriaxone Sodium (Ceftriaxone Sodium 1 Gm Vial) 1 gm IVPUSH Q24H [facility] Last Admin: 10/06/24 07:17 Dose: 1 gm Enoxaparin Sodium (Enoxaparin Sodium 40 Mg/0.4 Ml Syringe) 40 mg SUBCUT Q24H [facility] Last Admin: 10/06/24 07:16 Dose: 40 mg Magnesium Hydroxide (Milk Of Magnesia 30 Ml Oral.Susp) 30 ml PO DAILY PRN PRN Reason: Constipation Melatonin (Melatonin 3 Mg Tablet) 6 mg PO BEDTIME PRN PRN Reason: Insomnia Sodium Chloride (0.9 % Sodium Chloride Flush 3 Ml Syringe) 3 ml IVFLUSH QSHIFT [facility] Last Admin: 10/06/24 15:20 Dose: 3 ml Home Medications ?Medication ?Instructions ?Recorded ?Confirmed ?Last Taken ?Type No Known Home Meds 03/01/23 10/06/24 Unknown History Physical Exam 2 Vital Signs: Vital Signs: Last Vital Signs Temp 98.2 F 10/06/24 08:16 Pulse 90 10/06/24 14:24 Resp 20 10/06/24 13:51 BP 178/85 H 10/06/24 15:03 Pulse Ox 94 10/06/24 13:51 O2 Del Method Room Air 10/06/24 13:51 BMI result Body Mass Index 28.2 Neuro: Other: Left facial droop. Mild dysarthria. Left Ue drift . left hemiparesis 4to 4+/5. No sensory deficit. Plantar extensor on left Results Labs 10/06/24 05:36 10/06/24 05:36 Labs: Short CBC 10/06/24 Range/Units 05:36 WBC 9.8 (4.8-10.8) X10*3/uL Hgb 14.1 (12.0-16.0) g/dl Hct 41.2 (37.0-47.0) % Plt Count 331 (160-400) X10*3/uL BMP 10/06/24 05:36 Sodium 133 L Potassium 4.9 Chloride 105 Carbon Dioxide 20 L BUN 12 Creatinine 0.87 Calcium 8.9 D Liver Function 10/06/24 Range/Units 05:36 Total Bilirubin 0.5 (0.0-1.0) mg/dL Direct Bilirubin 0.1 (0.0-0.5) mg/dL AST 40 H (5-31) U/L ALT 41 H (0-31) U/L Alkaline Phosphatase 73 (39-117) U/L Albumin 4.0 (3.5-5.0) g/dL Urine 10/06/24 Range/Units 06:03 Urine Color Yellow Urine Appearance Clear Urine pH 7.5 (5.0-9.0) Ur Specific [place] >= 1.030 H (1.005-1.025) Urine Protein Trace (Neg-Trace) mg/dL Urine Glucose (UA) Negative (Negative) mg/dL Assessment and Plan (1) CVA (cerebral vascular accident): Status: Acute 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 MRI shows an acute right lateral thalamic -posterior capsular infarct, and modest microvascular disease Recom. PT, OT, BP control, ASA 81mg . Check lipid profile. Short term rehab. Procedures Date of Service Date of Service: 10/06/24
[2024-10-07] VITALS: BP 174/87; PULSE 87; RESP 16; TEMP 36.3; O2SAT 93
[2024-10-07 03:50] VITALS: BP 189/93; PULSE 86; RESP 16; TEMP 36.2; O2SAT 95
[2024-10-07 06:49] LABS: Anion Gap 12 (12-20); Blood Urea Nitrogen 14 mg/dL (9-16); Calcium 9.1 mg/dL (8.4-10.2); Carbon Dioxide 23 mmol/L (22-29); Chloride 104 mmol/L (96-108); Creatinine Clr Calc Pharmacy 49.1; Estimated Glomerular Filt Rate > 60; Glucose Random 107 mg/dL (60-115); Potassium 4.1 mmol/L (3.3-5.1); Sodium 135 mmol/L (135-145)
[2024-10-07 06:58] LABS: Hematocrit 41.5 % (37.0-47.0); Hemoglobin 13.9 g/dl (12.0-16.0); Mean Corpuscular HGB Conc 33.5 g/dl (31.0-35.0); Mean Corpuscular Hemoglobin 29.8 pg (27.0-33.0); Mean Corpuscular Volume 88.9 fL (80.0-98.0); Mean Platelet Volume 9.5 fL (9.4-12.3); Platelet Count 379 X10*3/uL (160-400); Red Blood Count 4.67 X10*6/uL (4.20-5.50); Red Cell Distribution Width 14.1 % (11.0-16.0); White Blood Count 9.3 X10*3/uL (4.8-10.8)
--- NOTE | 2024-10-07 07:00 | CA_ITS ---
Transthoracic Echocardiogram Patient (Last, First, Middle): Sanjauna Brennan, Gender: Female Date of : 1935 Age: 89 Procedure Date: 10/07/2024 Procedure Type: Transthoracic Echocardiogram Location: [facility] [place] Height: 167.64 cm Weight: 79.38 kg BSA: 1.89 m2 Heart Rate: 95 bpm BP: 189 / 93 mmHg Showroom Sales Consultant: MICHAEL Referring MD: Yany Hurley PA-C Non Destructive Evaluation Specialist: Clinton Snyder MD Symptoms: L weakness, CVA Study Quality: Adequate w contrast ECG Rhythm: Sinus Conclusions: - 1. Normal LV ejection fraction of 55-60% with moderate LVH with impaired relaxation filling pattern 2. Cardiac valvular Dopplers within normal limits 3. Normal calculated RV systolic pressure 4. Upper limits of normal ascending aortic size on one view Findings Procedure Information Contrast agent, definity, is being given per protocol without apparent complications. Left Ventricle Normal left ventricular cavity size. There is moderately increased left ventricular wall thickness. The left ventricular systolic function is normal. The visually estimated ejection fraction is between 55-60%. There is paradoxical septal motion consistent with a left bundle branch block. Spectral Doppler is indicative of an impaired relaxation filling pattern. E/E prime ratio is between 8 and 15 consistent with indeterminate filling pressures. Right Ventricle The right ventricle was not well visualized. Atria The left atrium is normal in size. Interatrial shunt cannot be excluded. The right atrium was not well visualized. Aortic Valve The aortic valve structure and function is likely normal. There is no aortic valve stenosis. There is no aortic valve regurgitation. Mitral Valve Likely normal mitral valve structure and function. There is trace mitral valve regurgitation. There is no mitral valve stenosis. Pulmonic Valve The pulmonic valve was not well visualized. Tricuspid Valve Likely normal tricuspid valve structure and function. There is mild tricuspid valve regurgitation. The right ventricular systolic pressure is normal. The right ventricular systolic pressure is 26 mmHg. Normal right atrial pressure. There is no evidence of pulmonary hypertension. Great Vessels The aorta was not well visualized. The pulmonary artery was not well visualized. Venous The inferior vena cava is normal in size and collapses greater than 50% with inspiration. Pericardium/Pleural The pericardium was not well visualized. Prior Study Comparison No prior study available for comparison. Measurements 2D Linear Measurements IVSd: 1.51 0.6-0.9/0.6-1.0 cm LVIDd: 3.71 3.9-5.3/4.2-5.9 cm LVIDd Index: 1.96 2.4-3.2/2.2-3.1 cm/m2 LVIDs: 2.75 2.0-3.6 cm LVPWd: 1.46 0.7-1.1 cm LA Diam: 3.60 2.7-3.8/3.0-4.0 cm LAIDs Index: 1.90 1.5-2.3 cm/m2 LV Mass: 256.89 67-162/88-224 g LV Mass Index: 135.92 43-95/49-115 g/m2 LVOT Diam: 2.10 3.0+(-)1.3 cm Mitral Valve MV Pk E: 0.30 MV PK A: 1.21 MV Decel Time: 112.00 E/A: 0.30 E'Lateral: 2.94 E'Medial: 3.59 E/E' Med: 8.50 E/E' Lat: 10.30 PHT: 33.00 MVA PHT: 6.67 Decel Chase: 2.72 Aortic Valve AoV Pk Khadar: 1.46 AoV Mn Khadar: 0.98 AoV VTI: 0.23 AoV Pk Grad: 9.00 Aov Mn Grad: 4.00 ALMA ROSA Cont.VTI: 2.48 LVOT LVOT Pk Khadar: 1.00 LVOT Mn Khadar: 0.66 LVOT VTI: 0.16 LVOT Pk Grad: 4.00 LVOT Mn Grad: 2.00 LVOT Diam: 2.10 LVOT Area: 3.46 Diastolic Function MV Pk E: 0.30 MV Pk A: 1.21 E/A: 0.30 E'Medial: 3.59 E/E' Med: 8.50 E' Laterial: 2.94 E/E' Lat: 10.30 Right Ventricle TAPSE (mm): 27.70 Tricuspid Valve TR Pk Khadar: 2.15 TR Pk Grad: 18.00 RA Press: 8.00 RVSP: 26.00 Great Vessels Aorta Sinus of Valsalva: 3.10 2.0-3.5 cm Ao Asc: 3.50 2.1-3.4 cm Pulmonary Valve PV Pk Khadar: 1.30 Peak PV Grad: 7.00 Updated in Other Vendor System with Status of Final Clinton Snyder MD electronically signed on 10/07/2024 11:59:20 AM with status of Final
[2024-10-07 07:55] VITALS: BP 182/98; PULSE 96; RESP 18; TEMP 36.4; O2SAT 94
[2024-10-07] MEDS: Atorvastatin Calcium 40 MG TABLET PO (07:55)
[2024-10-07] MEDS: Enoxaparin Sodium 40 MG/0.4 ML SYRINGE SUBCUT (07:56)
[2024-10-07] MEDS: Aspirin Enteric Coated 81 MG TABLET.DR PO (07:56)
[2024-10-07] MEDS: 0.9 % Sodium Chloride Flush 3 ML SYRINGE IVFLUSH (07:57)
[2024-10-07] MEDS: cefTRIAXone sodium 1 GM VIAL IVPUSH (07:57)
--- NOTE | 2024-10-07 09:00 | MHC.CM.PN ---
CM ATTEMPTED TO MEET W/PT HOWEVERPT REQUESTED CM RETURN AFTER SHE FINISHES BREAKFAST, CM TO REVISIT.
[2024-10-07 09:34] LABS: Glucose, Whole Blood 102 mg/dL (60-115)
[2024-10-07 09:39] LABS: Prothrombin Time Whole Bld POC 12.6 sec (11.1-13.5)
--- NOTE | 2024-10-07 10:24 | HO.PM.IMPN ---
Subjective Subjective Date of Service: 10/07/24 Interval History: f/u on acute stroke, has mild slur speech Physical Exam Vital Signs: Vital Signs: Last Vital Signs Temp 97.6 F 10/07/24 07:55 Pulse 96 10/07/24 07:55 Resp 18 10/07/24 07:55 BP 182/98 H 10/07/24 07:55 Pulse Ox 94 10/07/24 07:55 O2 Del Method Room Air 10/07/24 07:55 BMI result Body Mass Index 28.2 Objective Data Active Medications Acetaminophen (Acetaminophen 325 Mg Tablet) 975 mg PO Q6H PRN PRN Reason: Pain, Mild 1-3,fever,headache Aspirin (Aspirin Enteric Coated 81 Mg Tablet.Dr) 81 mg PO DAILY [facility] Last Admin: 10/07/24 07:56 Dose: 81 mg Documented By: DANIEL Atorvastatin Calcium (Atorvastatin Calcium 40 Mg Tablet) 40 mg PO DAILY [facility] Last Admin: 10/07/24 07:55 Dose: 40 mg Documented By: DANIEL Calcium Carbonate (Calcium Carbonate 750 Mg Tab.Chew) 750 mg PO Q4H PRN PRN Reason: Heartburn Ceftriaxone Sodium (Ceftriaxone Sodium 1 Gm Vial) 1 gm IVPUSH Q24H [facility] Last Admin: 10/07/24 07:57 Dose: 1 gm Documented By: DANIEL Enoxaparin Sodium (Enoxaparin Sodium 40 Mg/0.4 Ml Syringe) 40 mg SUBCUT Q24H [facility] Last Admin: 10/07/24 07:56 Dose: 40 mg Documented By: DANIEL Magnesium Hydroxide (Milk Of Magnesia 30 Ml Oral.Susp) 30 ml PO DAILY PRN PRN Reason: Constipation Melatonin (Melatonin 3 Mg Tablet) 6 mg PO BEDTIME PRN PRN Reason: Insomnia Sodium Chloride (0.9 % Sodium Chloride Flush 3 Ml Syringe) 3 ml IVFLUSH QSHIFT [facility] Last Admin: 10/07/24 07:57 Dose: 3 ml Documented By: DANIEL Labs 10/07/24 06:17 10/07/24 06:17 Labs: Laboratory Results - last 24 hr 10/06/24 10/07/24 05:03 06:17 MCV 88.9 MCH 29.8 MCHC 33.5 RDW 14.1 Plt Count 379 MPV 9.5 Absolute Nucleated RBC 0.000 Nucleated RBC % (auto) 0.0 Whole Blood PT 12.6 Whole Blood INR 1.0 Anion Gap 12 Estim Creat Clear Calc 49.1 Estimated GFR > 60 POC Glucose 102 Random Glucose 107 Calcium 9.1 Assessment and Plan (1) Hypertension: Status: Acute (2) UTI (urinary tract infection): Status: Acute (3) CVA (cerebral vascular accident): Status: Acute Plan Patient is an 89-year-old female with a past medical history significant for HTN (no meds), history of polio, and COPD stage I, who presented to the ED due to left-sided weakness starting yesterday. L sided weakness, MRI revealed a small focal , late acute infarct (CVA) involving the right thalamus. Moderate ischemic microangiopathy and volume loss. continue ASA, add statin, allow permissive HTN, PT, OT eval in am. Neurochecks -continue ASA, statin, BP control per neuro recommendation. -PT/OT recommends acute inpatient rehab UTI, Ceftriaxone, culture pending HTN, BP on high side previously no meds, start Norvasc COPD stage 1, no acute exacerbation - continue home meds full code VTE prophy: lovenox Need for hospitalization, acute cva, needs inpatient rehab Quality Stroke Does the patient have a stroke diagnosis?: Yes Reason for No Anti-thrombotic by Day Two: Contraindicated VTE Prior VTE?: No VTE Risk Level:: Medical - moderate - high VTE Device Contraindication: Treatment Not Indicated VTE Drug Contraindication: N/A - Med Ordered
[2024-10-07] MEDS: amLODIPine Besylate 5 MG TABLET PO (11:26)
[2024-10-07 11:40] VITALS: BP 182/92; PULSE 94; RESP 18; TEMP 36.9; O2SAT 94
--- NOTE | 2024-10-07 12:37 | P.DS_ITS ---
DS: Providers Provider Date of Service: 10/07/24 Date of admission: 10/06/24 06:54 Date of discharge: 10/07/24 Primary care physician: Roland Walsh MD Consults: 10/06/24 06:56 Consult to Neurology Routine Consulting Provider: [facility] Reason for consultation: L weakness, ?CVA Has provider been notified: No DS: Diagnosis Discharge Diagnosis (1) Hypertension: Status: Acute (2) UTI (urinary tract infection): Status: Acute (3) CVA (cerebral vascular accident): Status: Acute DS: Summary Hospital Course Hospital Course: admission hpi Chief Complaint: L weakness Patient is an 89-year-old female with a past medical history significant for HTN (no meds), history of polio, and COPD stage I, who presented to the ED due to left-sided weakness starting yesterday. The patient reports that she was feeling off around 14:00 and took a nap. She reports that she went on throughout her day and was able to walk but felt weak. Around 02:00 she woke up to urinate and describes much more significant left lower extremity weakness with a left-sided facial droop and was unable to get out of bed. She denies any headache, shortness of breath, chest pain. No recent illness. She has had some urinary frequency but denies any dysuria or urgency. She has a diagnosis of hypertension but does not take any medications reports this is diet controlled. The patient is a poor historian. hospital course: Patient is an 89-year-old female with a past medical history significant for hypertension (not on medication), a history of polio, and Stage I COPD. She presented to the ED with left-sided weakness that began the previous day. Initial workup included a non-contrast CT of the head, which showed no acute findings. A CTA of the head and neck showed no evidence of large vessel occlusion. MRI of the brain revealed a small, focal late acute infarct involving the right thalamus. Additionally, there was moderate ischemic microangiopathy and cerebral volume loss. Neurology evaluated the patient and recommended initiating aspirin (ASA), starting a statin, and controlling blood pressure. Physical and occupational therapy recommend acute inpatient rehabilitation. UTI, Ceftriaxone, culture negative, HTN, BP on high side previously no meds, started Norvasc 5 mg daily and meds should be adjusted for optimal blood pressure control, will avoid lowering BP too rapidly COPD stage 1, no acute exacerbation - continue home meds Time Attestation Discharge Coordination Time (in mins): 45 Quality: Safe Use of Opioids Does Pt have an Active Cancer Diagnosis on the Problem List?: No Quality: Stroke Does the patient have a stroke diagnosis?: No Physical Exam Vital Signs: Vital Signs: Last Vital Signs Temp 98.4 F 10/07/24 11:40 Pulse 94 10/07/24 11:40 Resp 18 10/07/24 11:40 BP 182/92 H 10/07/24 11:40 Pulse Ox 94 10/07/24 11:40 O2 Del Method Room Air 10/07/24 11:40 BMI result Body Mass Index 28.2 Const: Other: General: AOx3, no acute distress, seen with bedside Resp: CTA bilaterally CVS: S1, S2, RRR GI: +BS, NT, no distention Skin: Warm, dry Neuro: Pupils equal round and reactive to light, mild decreased sensation left side of face. Mild tongue deviation to the right. ? Dysarthria. Visual bañuelos affected left side. Motor grossly intact bilaterally. Decreased strength in left upper extremity, more significant and left lower extremity, also with mild slur speech Extremities: No LE edema Psych: Appropriate affect DS: Data Data Completed and Pending Labs on day of discharge: Laboratory Results - last 24 hr 10/06/24 10/07/24 05:03 06:17 WBC 9.3 RBC 4.67 Hgb 13.9 Hct 41.5 MCV 88.9 MCH 29.8 MCHC 33.5 RDW 14.1 Plt Count 379 MPV 9.5 Absolute Nucleated RBC 0.000 Nucleated RBC % (auto) 0.0 Whole Blood PT 12.6 Whole Blood INR 1.0 Sodium 135 Potassium 4.1 Chloride 104 Carbon Dioxide 23 Anion Gap 12 BUN 14 Creatinine 0.84 Estim Creat Clear Calc 49.1 Estimated GFR > 60 POC Glucose 102 Random Glucose 107 Calcium 9.1 Preliminary micro results at discharge 10/06/24 09:30 Blood Culture - Preliminary Blood - Venous No growth after 24 hours. 10/06/24 09:31 Blood Culture - Preliminary Blood - Venous No growth after 24 hours. Discharge Plan Discharge Anticipated Discharge Date/Time: 10/07/24 12:50 Patient Disposition: Xfer Inpatient Rehab Fac Discharge Diagnosis: Acute stroke Referrals: Roland Walsh MD [Primary Care Provider] - 1 Week Discharge Medications: New cefuroxime axetil 250 mg tablet 250 mg PO BID 3 Days Qty: 6 0RF aspirin 81 mg Tablet,Delayed Release (Dr/Ec) 81 mg PO DAILY Qty: 81 0RF melatonin 3 mg Tablet 6 mg PO BEDTIME PRN (Reason: Insomnia) Qty: 20 0RF atorvastatin 40 mg Tablet 40 mg PO DAILY Qty: 30 0RF amlodipine 5 mg Tablet 5 mg PO DAILY Qty: 30 0RF Protocol: Hold for SBP< HOLD for SBP < : 90 No Action No Known Home Meds Discharge Orders: Discharge Order (Routine); Ordered 10/07/24 Ordered By: Joseph Ivy Diet: Advance to usual diet Activity on Discharge: As tolerated Stand Alone Forms: Patient Portal Discharge page Print Language: Cameroonian Care Plan Goals: recovery from stroke Health Concerns: stroke Plan of Treatment: acute in patient rehab take Aspirin, lipitor to reduce further stroke risk, and norvasc for high blood pressure take ceftin as directed for uti Assessment: see above
[2024-10-07 13:05] VITALS: BP 176/88
--- NOTE | 2024-10-07 13:17 | MHC.STROKE ---
Met with patient and her in 452. Pt awake, alert and oriented x 4. Speech slow but clear and able to answer questions appropriately. Pt reports that her left sided facial droop is improving and her confirms this. States she still has some left sided weakness but feels it's getting a little better . Stroke Education provided to patient and family member. Stroke pamphlet given. Pictures discussing stroke provided as well. All questions answered. Pt engaged during the conversation, Pleasant. Will continue to assist as needed.
--- NOTE | 2024-10-07 13:36 | MHC.CM.PN ---
FROM HOME WITH NO SERVICES USES [facility] PCP- FANNIE MCARTHUR HCP- FILLED OUT, , BLADE, PROXY-[phone] DCP- ACUTE REHAB- [facility] OFFERED, BED ACCEPTED. 4:00 BLS TRANSPORT
== END 2024-10-07 16:43 | DRG 65 ==
LOC: HO.ED 06:44 → HO.EDOVER 07:03 → HO.IMC 14:14
PROVIDERS: Admitting Provider Physician Assistant; Emergency Provider Internal Medicine; PCP Family Medicine; Visit Provider Internal Medicine
DX: I63.9 Cerebral infarction, unspecified (principal); G81.94 Hemiplegia, unspecified affecting left nondominant side; N39.0 Urinary tract infection, site not specified; J44.9 Chronic obstructive pulmonary disease, unspecified; R29.704 NIHSS score 4; I10 Essential (primary) hypertension; Z86.12 Personal history of poliomyelitis
CPT/HCPCS: 36415; 70450; 70496; 70498; 70551; 80048; 80061; 80076; 81001; 82947; 83605; 84484; 85025; 85027; 85610; 85730; 87040; 93005; 93306; 93971; 97162; 97166; 99285; J0696; J1650; J3360; Q9957; Q9967

== ENCOUNTER → 2024-10-06 05:02 | Outpatient (BNV) | payer MEDICARE, BC, SELFPAY | PROVIDERS: Admitting Provider Physician Assistant; Emergency Provider Internal Medicine; PCP Family Medicine; Visit Provider Internal Medicine Cardiovascular Disease | DX: I44.7 Left bundle-branch block, unspecified (principal); R00.0 Tachycardia, unspecified | CPT/HCPCS: 93010 ==

== ENCOUNTER → 2024-10-06 05:02 | Outpatient (BNV) | payer MEDICARE, BC, SELFPAY | PROVIDERS: Emergency Provider Internal Medicine; PCP Family Medicine; Visit Provider Specialist | DX: I63.9 Cerebral infarction, unspecified (principal); R53.1 Weakness; R22.31 Localized swelling, mass and lump, right upper limb | CPT/HCPCS: 70551 ==

== ENCOUNTER 2024-10-06 06:54 | Outpatient (BNV) | payer MEDICARE, BC, SELFPAY | END 2024-10-07 07:00 | PROVIDERS: Admitting Provider Physician Assistant; Emergency Provider Internal Medicine; PCP Family Medicine; Visit Provider Internal Medicine Cardiovascular Disease | DX: I34.0 Nonrheumatic mitral (valve) insufficiency (principal); I36.1 Nonrheumatic tricuspid (valve) insufficiency | CPT/HCPCS: 93306 ==

== ENCOUNTER → 2024-10-06 06:54 | Outpatient (BNV) | payer MEDICARE, BC, SELFPAY | PROVIDERS: Admitting Provider Physician Assistant; Emergency Provider Internal Medicine; PCP Family Medicine; Visit Provider Internal Medicine | DX: R53.1 Weakness (principal); I63.9 Cerebral infarction, unspecified; N39.0 Urinary tract infection, site not specified | CPT/HCPCS: 99223; 99499 ==

== ENCOUNTER → 2024-10-06 06:54 | Outpatient (BNV) | payer MEDICARE, BC, SELFPAY | PROVIDERS: Admitting Provider Physician Assistant; Emergency Provider Internal Medicine; PCP Family Medicine; Visit Provider Psychiatry & Neurology Neurology | DX: I63.9 Cerebral infarction, unspecified (principal) | CPT/HCPCS: 99222 ==

== ENCOUNTER 2024-10-23 13:55 | Outpatient (AMB) | payer MEDICARE, BC, SELFPAY ==
--- NOTE | 2024-10-23 13:59 | A.OFFPC_ITS ---
Vital Signs 10/23/24 14:04 Height 5 ft 6 in Weight 171 lb 6 oz BMI 27.7 BP 126/58 L Blood Pressure Location Lt brachial Position Sitting Pulse 84 Pulse Source Pulse Oximeter Temp 97.2 F Temp Source Oral Pulse Oximetry (%) 96 Oxygen Delivery Method Room Air Intake Visit Reasons: [facility] Discharged on 10/17 Intake Note: patient scheduled for ED discharge Scrip Clerk Required: No Information Interpreted: clinical only Defence Intelligence Analyst: Present Accompanied by: Spouse Is last menstrual period known: No Post menopausal: No Patient : No Allergies No Known Allergies Allergy (Verified 10/23/24 14:01) Tobacco use date assessed: 03/01/23 Dental Screening Dental Screen Date: 03/01/23 HPI [facility] Discharged on 10/17 HPI Details Patient?presents?for?hospital?discharge?follow-up/TCM after?presenting?to?we?have?hospital?with?progressive?left-sided?weakness. 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 She?also?had?a?urinary?tract?infection. She?was?outside?window?of?thrombolytics. Blood?pressure?was?gradually?reduced UTI?was?treated?with?the?antibiotics?which?she?has?completed Echocardiogram?was?not?read?at?the?time?of?her?discharge. She?was?referred?for?rehab;?PT/OT She?had?some?speech rehab?as?well?but?is?already?discharged She?has?a?referral?to?neurology [facility] Medical History (Updated 10/15/24 @ 00:02 by Jane Barron) HTN (hypertension), benign Polio Surgical History History of hip replacement Social History Household Members: Spouse Housing: House Do you presently have visiting nurse or other home services: No Patient Tobacco Use Status: Never used Tobacco e-Cigarette/Vaping Use: Never Used Second Hand Smoke Exposure: No service: No Current occupational status: retired Current occupational exposures/hazards: No Cognitive needs: No Hearing needs: No Vision needs: No Questionnaire PHQ-9 Over the last 2 weeks, how often have you been bothered by any of the following problems? 1. Little interest or pleasure in doing things: not at all 2. Feeling down, depressed, or hopeless: more than half the days 3. Trouble falling or staying asleep, or sleeping too much: several days 4. Feeling tired or having little energy: more than half the days 5. Poor appetite or overeating: not at all 6. Feeling bad about yourself - or that you are a failure or have let yourself or your family down: not at all 7. Trouble concentrating on things, such as reading the newspaper or watching television: not at all 8. Moving or speaking so slowly that other people could have noticed. Or the opposite - being so fidgety or restless that you have been moving around a lot more than usual: not at all 9. Thoughts that you would be better off or of hurting yourself in some way: not at all Total score: 5 Depression Screening Interpretation: Negative Depression Screening Done: Yes 96385 - PHQ-9 Billing: Yes Source: Developed by Drs. Car Hayward, Ingrid Canales, Óscar Aleman and colleagues, with an educational neil from [employer]. Thrive Questionnaire Date Thrive assessed: 10/23/24 What is your living situation today?: I have a steady place to live Within the past 12 months, did the food you bought not last and you didn't have the money to get more?: Never true Within the past 12 months, did you worry whether your food would run out before you got money to buy more?: Never true Do you have trouble paying for medicines?: No Do you have trouble getting transportation to medical appointments?: No Do you have trouble paying your heating and electricity bill?: No Do you have trouble taking care of your child, family member or friend?: No Do you have trouble with day-to-day activities such as bathing, preparing meals, shopping, managing finances, etc.?: No Are you currently unemployed and looking for a job?: No Are you interested in more education?: No Please select the resources that you would like help with: None THRIVE Score: 0 QUINN-7 AMB Questionnaire QUINN-7 Date QUINN - 7 assessed: 03/01/23 Source: Developed by Drs. Car Hayward, Ingrid Canales, Óscar Aleman and colleagues, with an educational neil from [employer]. Review of Systems Const Denies chills, Denies fatigue, Denies fever(s), Denies headache(s) and Reports weakness ENT Denies dizziness and Denies headache(s) Card Denies chest pain, Denies lightheadedness, Denies dyspnea and Denies other (Palpitations) Resp Denies cough, Denies dyspnea, Denies wheezing and Denies other ( shortness of breath) Musc Denies numbness and Reports tingling Neuro Denies dizziness, Denies headache(s), Denies numbness, Reports tingling, Denies paresthesias and Reports weakness Psych Denies anxiety and Denies depression Endo Denies fatigue Aller/Immun Denies wheezing Physical exam (Primary Care) Vital Signs: Last Vital Signs Temp 97.2 F 10/23/24 14:04 Pulse 84 10/23/24 14:04 BP 126/58 L 10/23/24 14:04 Pulse Ox 96 10/23/24 14:04 Oxygen Delivery Method Room Air 10/23/24 14:04 BMI result Body Mass Index 27.7 Tobacco/Smoking Status: Tobacco use Status Tobacco use date assessed 03/01/23 10/23/24 14:00 Patient Tobacco Use Status Never used Tobacco 10/23/24 14:00 e-Cigarette/Vaping Use Never Used 10/23/24 14:00 PHQ-9: PHQ-9 Score PHQ-9: Total score 5 10/23/24 14:13 Depression Screening Interpretation: Negative Thrive Assessment: Date of Thrive Assessment Date Thrive assessed 10/23/24 10/23/24 14:13 Const General: no acute distress and well developed Nutritional Appearance: well nourished Orientation/consciousness: patient oriented x3 HENMT Head: Yes normocephalic and Yes atraumatic Eyes General: appearance normal, both eyes and all related structures Pupils: Equal, round and reactive pupils present EOM: EOMs intact bilaterally Resp Effort & Inspection: normal respiratory effort Auscultation: clear to auscultation bilaterally Cardio Rate: regular rate Rhythm: regular rhythm Heart sounds: S1 normal heart sound present, S2 normal heart sound present, no gallops, no murmurs and no rubs Neuro Other: Unsteady?gait?with?left?lower?extremity?weakness.??Using?walker. Strength?at?left?lower?extremities?4/5.??Right?lower?extremity?5/5 Strength?at?left?upper?extremity?4/5.??Left?upper?extremity?5/5 Mild?facial?droop?with?left-sided?weakness Speech?is?fluid General: patient oriented x3 and gait normal Cranial nerves: Yes Equal, round and reactive pupils present Psych Affect: normal affect Coding Level of Care Code TCM High MDM <= 7 Days Diagnoses HTN (hypertension), benign I10 CVA (cerebral vascular accident) I63.9 Left-sided weakness R53.1 Additional Codes PHQ-9 - 84022 - PHQ-9 Billing: Yes ([id number]) Assessment & Plan Assessment & Plan (1) HTN (hypertension), benign: Code(s): I10 - Essential (primary) hypertension Category: Medical (2) CVA (cerebral vascular accident): Code(s): I63.9 - Cerebral infarction, unspecified Category: Medical (3) Left-sided weakness: Code(s): R53.1 - Weakness Category: Medical Plan Hospital?discharge?follow-up?for?CVA,?hypertension?and?UTI. Patient?noted?unilateral?weakness?and?facial?droop. At?the?Hospital,?MRI?showed?right?thalamic?infarct.??She?was?outside?the?window? of?thrombolytics.?? Echocardiogram?shows?some?LVH?but?otherwise?is?okay Aspirin?and?atorvastatin?were?continued. She?was?given?cefuroxime?for?UTI?and?has?completed?this. She?has?PT/OT Blood?pressure?today?126/58.??Good?control.??Goal?is?less?than?130/80 Continue?amlodipine?and?metoprolol?as?prescribed Neuro - she?has?an?appointment?with? Continue?aspirin?and?atorvastatin Continue?metoprolol?and?amlodipine?as?prescribed. Blood?pressure?is?at?goal?of?less?than?130/80 Follow-up?with?Neurology?as?recommended Continue?PT/OT
[2024-10-23 14:04] VITALS: BP 126/58; PULSE 84; TEMP 36.2; O2SAT 96; BMI 27.7
--- OUTSIDE RECORDS SUMMARY | 2024-10-23 15:10 | XMS_ITS | Continuity of Care Document ---
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 [address] [facility] [address], [place], [place], [id number] , [place]. tel:[phone] Referring Provider: Eze Modi, [address] [place] [address], [place], [place], [facility]. tel:[phone] Family History Family Member Type Diagnosis Age At Onset No Information Payers Payer name Insurance type Covered republican ID Authoriza tion(s) Medicare Part B MB [id number] [place] [id number] Social History Type Description Quantity Date Captured [...]
== END 2024-10-23 14:55 | disposition home or self-care (01) ==
LOC: HO.HMCFM 13:56
PROVIDERS: PCP Family Medicine; Visit Provider Family Medicine
DX: I10 Essential (primary) hypertension (principal); I63.9 Cerebral infarction, unspecified; R53.1 Weakness

== ENCOUNTER → 2024-10-23 13:55 | Outpatient (BNVA) | payer MEDICARE, BC, SELFPAY | PROVIDERS: PCP Family Medicine; Visit Provider Family Medicine | DX: I10 Essential (primary) hypertension (principal); I63.9 Cerebral infarction, unspecified; R53.1 Weakness | CPT/HCPCS: 96127; 99212 ==

== ENCOUNTER 2024-11-19 13:33 | Outpatient (AMB) | payer MEDICARE, BC, SELFPAY ==
--- OUTSIDE RECORDS SUMMARY | 2024-11-19 13:41 | XMS_ITS | Clinical Summary ---
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 10-18 00:00: 00 FACIAL WEAKNESS FOLLOWING CEREBRAL INFARCTION Active 10-18 00:00: 00 CHRONIC OBSTRUCTIVE PULMONARY DISEASE, UNSPECIFIED Active 10-18 00:00: 00 ESSENTIAL (PRIMARY) HYPERTENSION Active 10-18 00:00: 00 LEFT BUNDLE-BRANC H BLOCK, UNSPECIFIED Active 10-18 00:00: 00 PERSONAL HISTORY OF URINARY (TRACT) INFECTIONS Active 08-20 00:00: 00 PRESENCE OF RIGHT ARTIFICIAL HIP JOINT Active 10-18 00:00: 00 Allergies, Adverse Reactions, Alerts Allergy Name Allergy Type Status Severity Reaction(s) Onset Date Inactive Date Treating Clinician Comments NO KNOWN ALLERGIES Propensity to adverse reactions Active 10-18 16:39: 28 Medications Ordered Medication Name Filled Medication Name Start Date Stop Date Current Medication? Ordering Clinician Indication Dosage Frequency Signature (SIG) Comments Components amlodipine 10 mg tablet 10-18 00:00: 00 Yes [id number] HTN 1 tablet DAILY 1 tablet DAILY (route: oral) Med Classific ation: Cardiovas cular Therapy Agents aspirin 81 mg tablet,kelli yed release 10-18 00:00: 00 Yes [id number] HEART HEALTH 1 tablet DAILY 1 tablet DAILY (route: oral) Med Classific ation: Hematolog ical Agents atorvastati n 40 mg tablet 10-18 00:00: 00 Yes [id number] CHOLESTEROL 1 tablet DAILY 1 tablet DAILY (route: oral) Med Classific ation: Cardiovas cular Therapy Agents docusate sodium 100 mg capsule 10-18 00:00: 00 Yes [id number] STOOL SOFTENER 1 capsule 2 TIMES DAILY 1 capsule 2 TIMES DAILY (route: oral) Med Classific ation: Gastroint estinal Therapy Agents melatonin 3 mg tablet 10-18 00:00: 00 Yes [id number] INSOMNIA 1 tablet DAILY 1 tablet DAILY (route: oral) Med Classific ation: Central Nervous System Agents metoprolol tartrate 25 mg tablet 10-18 00:00: 00 Yes [id number] HTN .5 tablet 2 TIMES DAILY .5 tablet 2 TIMES DAILY (route: oral) Med Classific ation: Cardiovas cular Therapy Agents Senna Lax 8.6 mg tablet 10-18 00:00: 00 Yes [id number] LAXATIVE 2 tablet DAILY 2 tablet DAILY (route: oral) Med Classific ation: Gastroint estinal Therapy Agents Vital Signs Vital Name Observation Time Observation Value Commen ts Temperature 2024-11-14 10:04:00.000 97.4 [degF] Temperature 2024-11-12 11:23:00.000 96.9 [degF] Temperature 2024-11-07 12:28:00.000 97 [degF] Temperature 2024-11-05 11:17:00.000 97.1 [degF] Temperature 2024-11-04 14:27:00.000 97.1 [degF] Temperature 2024-10-31 14:41:00.000 97.3 [degF] Temperature 2024-10-31 12:45:00.000 96.4 [degF] Temperature 2024-10-30 12:37:00.000 97.1 [degF] Temperature 2024-10-24 12:27:00.000 98.4 [degF] Temperature 2024-10-24 12:20:00.000 98 [degF] Temperature 2024-10-22 11:09:00.000 97.4 [degF] Temperature 2024-10-18 12:16:00.000 96.1 [degF] BMI (%) 2024-10-18 12:16:00.000 29 kg/m2 Height 2024-10-18 12:16:00.000 66 [in_us] Pulse 2024-11-14 13:17:00.000 78 /min Pulse 2024-11-14 10:04:00.000 78 /min Pulse 2024-11-12 11:23:00.000 74 /min Pulse 2024-11-07 12:28:00.000 76 /min Pulse 2024-11-05 11:17:00.000 64 /min Pulse 2024-11-04 14:27:00.000 67 /min Pulse 2024-10-31 14:41:00.000 69 /min Pulse 2024-10-31 12:45:00.000 64 /min Pulse 2024-10-30 12:37:00.000 74 /min Pulse 2024-10-24 12:27:00.000 77 /min Pulse 2024-10-24 12:07:00.000 77 /min Pulse 2024-10-22 11:09:00.000 70 /min Pulse 2024-10-18 12:16:00.000 64 /min O2 Saturation (%) 2024-11-14 13:34:00.000 93 % O2 Saturation (%) 2024-11-14 13:15:00.000 97 % O2 Saturation (%) 2024-11-14 10:04:00.000 97 % O2 Saturation (%) 2024-11-12 11:23:00.000 95 % O2 Saturation (%) 2024-11-07 12:28:00.000 97 % O2 Saturation (%) 2024-11-05 11:17:00.000 98 % O2 Saturation (%) 2024-11-04 14:27:00.000 99 % O2 Saturation (%) 2024-10-31 14:44:00.000 95 % O2 Saturation (%) 2024-10-31 14:41:00.000 94 % O2 Saturation (%) 2024-10-31 12:45:00.000 95 % O2 Saturation (%) 2024-10-30 12:37:00.000 98 % O2 Saturation (%) 2024-10-24 12:27:00.000 96 % O2 Saturation (%) 2024-10-24 12:07:00.000 96 % O2 Saturation (%) 2024-10-22 11:09:00.000 98 % O2 Saturation (%) 2024-10-18 12:16:00.000 93 % Respirations 2024-11-14 13:13:00.000 16 /min Respirations 2024-11-14 10:04:00.000 18 /min Respirations 2024-11-12 11:23:00.000 16 /min Respirations 2024-11-07 12:28:00.000 16 /min Respirations 2024-11-05 11:17:00.000 16 /min Respirations 2024-11-04 14:27:00.000 16 /min Respirations 2024-10-31 14:41:00.000 16 /min Respirations 2024-10-31 12:45:00.000 18 /min Respirations 2024-10-30 12:37:00.000 16 /min Respirations 2024-10-24 12:27:00.000 16 /min Respirations 2024-10-24 12:20:00.000 16 /min Respirations 2024-10-22 11:09:00.000 16 /min Respirations 2024-10-18 12:16:00.000 18 /min Weight (lbs) 2024-11-14 13:22:00.000 178 [lb_av] Weight (lbs) 2024-11-14 10:06:00.000 178 [lb_av] Weight (lbs) 2024-11-07 12:28:00.000 177 [lb_av] Weight (lbs) 2024-11-05 11:17:00.000 177 [lb_av] Weight (lbs) 2024-11-04 14:27:00.000 177 [lb_av] Weight (lbs) 2024-10-24 12:37:00.000 177 [lb_av] Weight (lbs) 2024-10-24 12:29:00.000 177.8 [lb_av] Weight (lbs) 2024-10-18 12:16:00.000 183.4 [lb_av] Systolic Blood Pressure 2024-11-14 13:13:00.000 126 mm [Hg] Systolic Blood Pressure 2024-11-14 10:04:00.000 126 mm [Hg] Systolic Blood Pressure 2024-11-12 11:23:00.000 124 mm [Hg] Systolic Blood Pressure 2024-11-07 12:28:00.000 128 mm [Hg] Systolic Blood Pressure 2024-11-05 11:17:00.000 120 mm [Hg] Systolic Blood Pressure 2024-11-04 14:27:00.000 138 mm [Hg] Systolic Blood Pressure 2024-10-31 14:53:00.000 134 mm [Hg] Systolic Blood Pressure 2024-10-31 14:41:00.000 134 mm [Hg] Systolic Blood Pressure 2024-10-31 12:45:00.000 134 mm [Hg] Systolic Blood Pressure 2024-10-30 12:37:00.000 138 mm [Hg] Systolic Blood Pressure 2024-10-24 12:27:00.000 124 mm [Hg] Systolic Blood Pressure 2024-10-24 12:20:00.000 124 mm [Hg] Systolic Blood Pressure 2024-10-22 11:09:00.000 138 mm [Hg] Systolic Blood Pressure 2024-10-18 12:16:00.000 140 mm [Hg] Diastolic Blood Pressure 2024-11-14 13:13:00.000 62 mm [Hg] Diastolic Blood Pressure 2024-11-14 10:04:00.000 62 mm [Hg] Diastolic Blood Pressure 2024-11-12 11:23:00.000 70 mm [Hg] Diastolic Blood Pressure 2024-11-07 12:28:00.000 68 mm [Hg] Diastolic Blood Pressure 2024-11-05 11:17:00.000 69 mm [Hg] Diastolic Blood Pressure 2024-11-04 14:27:00.000 70 mm [Hg] Diastolic Blood Pressure 2024-10-31 14:53:00.000 83 mm [Hg] Diastolic Blood Pressure 2024-10-31 14:41:00.000 76 mm [Hg] Diastolic Blood Pressure 2024-10-31 12:45:00.000 76 mm [Hg] Diastolic Blood Pressure 2024-10-30 12:37:00.000 70 mm [Hg] Diastolic Blood Pressure 2024-10-24 12:27:00.000 76 mm [Hg] Diastolic Blood Pressure 2024-10-24 12:20:00.000 72 mm [Hg] Diastolic Blood Pressure 2024-10-22 11:09:00.000 76 mm [Hg] Diastolic Blood Pressure 2024-10-18 12:16:00.000 80 mm [Hg] Plan of Treatment Planned Activity Planned Date Details Comments Future Scheduled Test PHYSICAL T HERAPIST TO EVALUATE TREAT INDICATED [code = PHYSICAL THERAPIST TO EVALUATE TREAT INDICATED] Future Scheduled Test OCCUPATION AL THERAPIST TO EVALUATE TREAT INDICATED [code = OCCUPATIONAL THERAPIST TO EVALUATE TREAT INDICATED] Future Scheduled Test FALL REDUC TION MANAGEMENT; RN TO ASSESS AND OBSERVE, INVENTORY ANALYST/DOLL SURGEON TO OBSERVE FALL RISK FACTORS AND EDUCATE PATIENT/CAREGIVER ON STRATEGIES TO MINIMIZE THE RISK OF FALLING. [code = FALL REDUCTION MANAGEMENT; RN TO ASSESS AND OBSERVE, INVENTORY ANALYST/DOLL SURGEON TO OBSERVE FALL RISK FACTORS AND EDUCATE PATIENT/CAREGIVER ON STRATEGIES TO MINIMIZE THE RISK OF FALLING.] Future Scheduled Test GENITOURIN NOA MANAGEMENT; RN TO ASSESS AND TEACH, INVENTORY ANALYST/DOLL SURGEON TO OBSERVE AND TEACH RELATED TO ALTERED GENITOURINARY STATUS TO MINIMIZE COMPLICATIONS AND REDUCE HOSPITALIZATION. [code = GENITOURINARY MANAGEMENT; RN TO ASSESS AND TEACH, INVENTORY ANALYST/DOLL SURGEON TO OBSERVE AND TEACH RELATED TO ALTERED GENITOURINARY STATUS TO MINIMIZE COMPLICATIONS AND REDUCE HOSPITALIZATION. ] Future Scheduled Test URINARY TR ACT INFECTION MANAGEMENT; RN/DOLL SURGEON/INVENTORY ANALYST TO PROVIDE SKILLED TEACHING AND SELF- CARE MANAGEMENT RELATED TO UTI TO MINIMIZE COMPLICATIONS AND REDUCE THE RISK OF HOSPITALIZATION. [code = URINARY TRACT INFECTION MANAGEMENT; RN/DOLL SURGEON/INVENTORY ANALYST TO PROVIDE SKILLED TEACHING AND SELF- CARE MANAGEMENT RELATED TO UTI TO MINIMIZE COMPLICATIONS AND REDUCE THE RISK OF HOSPITALIZATION.] Future Scheduled Test NEUROLOGIC AL SYSTEM MANAGEMENT; RN TO ASSESS AND TEACH, DOLL SURGEON/INVENTORY ANALYST TO OBSERVE AND TEACH RELATED TO ALTERED NEUROLOGICAL STATUS TO MINIMIZE COMPLICATIONS AND REDUCE HOSPITALIZATION. [code = NEUROLOGICAL SYSTEM MANAGEMENT; RN TO ASSESS AND TEACH, DOLL SURGEON/INVENTORY ANALYST TO OBSERVE AND TEACH RELATED TO ALTERED NEUROLOGICAL STATUS TO MINIMIZE COMPLICATIONS AND REDUCE HOSPITALIZATION. ] Future Scheduled Test CEREBRAL V ASCULAR ACCIDENT MANAGEMENT; RN/DOLL SURGEON/INVENTORY ANALYST TO PROVIDE SKILLED TEACHING AND MANAGEMENT OF POST CEREBRAL VASCULAR ACCIDENT. [code = CEREBRAL VASCULAR ACCIDENT MANAGEMENT; RN/DOLL SURGEON/INVENTORY ANALYST TO PROVIDE SKILLED TEACHING AND MANAGEMENT OF POST CEREBRAL VASCULAR ACCIDENT. ] Future Scheduled Test RN TO OBSE RVE, ASSESS, EVALUATE, AND DEVELOP AN INDIVIDUALIZED PLAN OF CARE. AGENCY MAY ACCEPT ORDERS FROM CONSULTING PHYSICIANS DR FANNIE MCARTHUR, DR SAIRA JONES. RN TO OBSERVE AND ASSESS, INVENTORY ANALYST/DOLL SURGEON TO OBSERVE FOR RISK FOR FALLS AND INSTRUCT IN FALL PREVENTION, HOME SAFETY, MEDICATION MANAGEMENT, INFECTION PREVENTION, AND NUTRITION MANAGEMENT. RN/INVENTORY ANALYST/DOLL SURGEON NURSE MAY PERFORM O2 SATURATION LEVEL ON ADMISSION AND PRN FOR SOB FOR RN TO ASSESS/INVENTORY ANALYST TO OBSERVE PATIENT, WITH NOTIFICATION TO THE PHYSICIAN IF SATURATION IS 90% IN THE ABSENCE OF MORE SPECIFIC PARAMETERS FROM THE PHYSICIAN. AGENCY MAY PERFORM A RESUMPTION OF CARE VISIT FOLLOWING ANY HOSPITAL ADMISSION. RN/INVENTORY ANALYST/DOLL SURGEON TO MONITOR CO-MORBID CONDITIONS LISTED ON THE PLAN OF CARE AND ANY NEW CONDITIONS THAT PRESENT THEMSELVES DURING THIS EPISODE TO IDENTIFY CHANGES AND INTERVENE TO MINIMIZE COMPLICATIONS. [code = RN TO OBSERVE, ASSESS, EVALUATE, AND DEVELOP AN INDIVIDUALIZED PLAN OF CARE. AGENCY MAY ACCEPT ORDERS FROM CONSULTING PHYSICIANS DR FANNIE MCARTHUR, DR SAIRA JONES. RN TO OBSERVE AND ASSESS, INVENTORY ANALYST/DOLL SURGEON TO OBSERVE FOR RISK FOR FALLS AND INSTRUCT IN FALL PREVENTION, HOME SAFETY, MEDICATION MANAGEMENT, INFECTION PREVENTION, AND NUTRITION MANAGEMENT. RN/INVENTORY ANALYST/DOLL SURGEON NURSE MAY PERFORM O2 SATURATION LEVEL ON ADMISSION AND PRN FOR SOB FOR RN TO ASSESS/INVENTORY ANALYST TO OBSERVE PATIENT, WITH NOTIFICATION TO THE PHYSICIAN IF SATURATION IS 90% IN THE ABSENCE OF MORE SPECIFIC PARAMETERS FROM THE PHYSICIAN. AGENCY MAY PERFORM A RESUMPTION OF CARE VISIT FOLLOWING ANY HOSPITAL ADMISSION. RN/INVENTORY ANALYST/DOLL SURGEON TO MONITOR CO-MORBID CONDITIONS LISTED ON THE PLAN OF CARE AND ANY NEW CONDITIONS THAT PRESENT THEMSELVES DURING THIS EPISODE TO IDENTIFY CHANGES AND INTERVENE TO MINIMIZE COMPLICATIONS.] Future Scheduled Test PAIN MANAG EMENT; RN TO ASSESS AND TEACH, DOLL SURGEON/INVENTORY ANALYST TO OBSERVE AND TEACH AND PROVIDE EDUCATION ON PAIN MANAGEMENT TECHNIQUES. [code = PAIN MANAGEMENT; RN TO ASSESS AND TEACH, DOLL SURGEON/INVENTORY ANALYST TO OBSERVE AND TEACH AND PROVIDE EDUCATION ON PAIN MANAGEMENT TECHNIQUES.] Future Scheduled Test RISK FOR H OSPITALIZATION; RN TO ASSESS/TEACH, DOLL SURGEON/INVENTORY ANALYST TO OBSERVE/TEACH PATIENT/CAREGIVER ON RISK FOR HOSPITALIZATION/EMERGENCY ROOM VISITS, TEACH SIGNS AND SYMPTOMS THAT PUT PATIENT AT RISK, WHEN TO NOTIFY NURSE/PHYSICIAN OF COMPLICATIONS/DECLINE, AND WHEN TO CALL 911. [code = RISK FOR HOSPITALIZATION; RN TO ASSESS/TEACH, DOLL SURGEON/INVENTORY ANALYST TO OBSERVE/TEACH PATIENT/CAREGIVER ON RISK FOR HOSPITALIZATION/EMERGENCY ROOM VISITS, TEACH SIGNS AND SYMPTOMS THAT PUT PATIENT AT RISK, WHEN TO NOTIFY NURSE/PHYSICIAN OF COMPLICATIONS/DECLINE, AND WHEN TO CALL 911.] Future Scheduled Test CARDIOVASC ULAR SYSTEM; RN TO ASSESS/TEACH, INVENTORY ANALYST/DOLL SURGEON TO OBSERVE/TEACH RELATED TO ALTERED CARDIOVASCULAR STATUS TO MINIMIZE COMPLICATIONS AND REDUCE HOSPITALIZATION. [code = CARDIOVASCULAR SYSTEM; RN TO ASSESS/TEACH, INVENTORY ANALYST/DOLL SURGEON TO OBSERVE/TEACH RELATED TO ALTERED CARDIOVASCULAR STATUS TO MINIMIZE COMPLICATIONS AND REDUCE HOSPITALIZATION.] Future Scheduled Test HYPERTENSI ON MANAGEMENT; RN TO ASSESS AND TEACH, INVENTORY ANALYST/DOLL SURGEON TO OBSERVE AND TEACH WARNING SIGNS AND SYMPTOMS TO AVOID HOSPITALIZATION. [code = HYPERTENSION MANAGEMENT; RN TO ASSESS AND TEACH, INVENTORY ANALYST/DOLL SURGEON TO OBSERVE AND TEACH WARNING SIGNS AND SYMPTOMS TO AVOID HOSPITALIZATION.] Future Scheduled Test MEDICATION MANAGEMENT; RN/INVENTORY ANALYST/DOLL SURGEON TO REVIEW MEDICATIONS FOR INTERACTIONS, EFFECTIVENESS OF DRUG THERAPY, AND SIGNS/SYMPTOMS OF ADVERSE REACTIONS. MAY INSTRUCT AND REINFORCE MEDICATION TEACHING RELATED TO THE USE OF MEDICATIONS, DOSAGE, FREQUENCY, PURPOSE, SIDE EFFECTS, AND TO REPORT COMPLICATIONS. [code = MEDICATION MANAGEMENT; RN/INVENTORY ANALYST/DOLL SURGEON TO REVIEW MEDICATIONS FOR INTERACTIONS, EFFECTIVENESS OF DRUG THERAPY, AND SIGNS/SYMPTOMS OF ADVERSE REACTIONS. MAY INSTRUCT AND REINFORCE MEDICATION TEACHING RELATED TO THE USE OF MEDICATIONS, DOSAGE, FREQUENCY, PURPOSE, SIDE EFFECTS, AND TO REPORT COMPLICATIONS.] Future Scheduled Test AGENCY MAY PERFORM A RESUMPTION OF CARE VISIT FOLLOWING ANY HOSPITAL ADMISSION. PT TO EVALUATE, OBSERVE / ASSESS, AND MONITOR, PAPER TESTER TO OBSERVE AND MONITOR, PROVIDE SKILLED THERAPEUTIC INTERVENTION, ACTIVITY, EDUCATION, AND TRAINING TO ADDRESS; PT/PAPER TESTER TO PROVIDE GAIT TRAINING FOR IMPROVED MOBILITY AND /OR TO NORMALIZE GAIT PATTERN NEUROMUSCULAR RE-EDUCATION / BALANCE / POSTURAL CONTROL (PT) THERAPEUTIC EXERCISES AND ESTABLISHING A HOME EXERCISE PROGRAM (PT/PAPER TESTER) PT/PAPER TESTER TO PROVIDE STAIR TRAINING CHAIR TRANSFERS (PT/PAPER TESTER) PT / PAPER TESTER TO MONITOR AND EDUCATE ON OXYGEN SATURATION DURING ADLS/IADLS, NOTIFY PHYSICIAN AND/OR THE RN CLINICAL HOME HEALTH OUTREACH COORDINATOR FOR PHYSICIAN NOTIFICATION AND IF O2 SATS BELOW PHYSICIAN ORDERED PARAMETERS AFTER 10 MIN OF REST PT/PAPER TESTER TO IDENTIFY FALL RISK FACTORS; EDUCATE THE PATIENT/CAREGIVER ON WAYS TO REDUCE FALL RISK FACTORS AND ESTABLISH HOME EXERCISE PROGRAM TO MINIMIZE FALL RISK. MAY TEACH THE PATIENT FLOOR RECOVERY WHEN CLINICALLY APPROPRIATE PT / PAPER TESTER TO EDUCATE ON CVA SELF-MANAGEMENT [code = AGENCY MAY PERFORM A RESUMPTION OF CARE VISIT FOLLOWING ANY HOSPITAL ADMISSION. PT TO EVALUATE, OBSERVE / ASSESS, AND MONITOR, PAPER TESTER TO OBSERVE AND MONITOR, PROVIDE SKILLED THERAPEUTIC INTERVENTION, ACTIVITY, EDUCATION, AND TRAINING TO ADDRESS; PT/PAPER TESTER TO PROVIDE GAIT TRAINING FOR IMPROVED MOBILITY AND /OR TO NORMALIZE GAIT PATTERN NEUROMUSCULAR RE-EDUCATION / BALANCE / POSTURAL CONTROL (PT) THERAPEUTIC EXERCISES AND ESTABLISHING A HOME EXERCISE PROGRAM (PT/PAPER TESTER) PT/PAPER TESTER TO PROVIDE STAIR TRAINING CHAIR TRANSFERS (PT/PAPER TESTER) PT / PAPER TESTER TO MONITOR AND EDUCATE ON OXYGEN SATURATION DURING ADLS/IADLS, NOTIFY PHYSICIAN AND/OR THE RN CLINICAL HOME HEALTH OUTREACH COORDINATOR FOR PHYSICIAN NOTIFICATION AND IF O2 SATS BELOW PHYSICIAN ORDERED PARAMETERS AFTER 10 MIN OF REST PT/PAPER TESTER TO IDENTIFY FALL RISK FACTORS; EDUCATE THE PATIENT/CAREGIVER ON WAYS TO REDUCE FALL RISK FACTORS AND ESTABLISH HOME EXERCISE PROGRAM TO MINIMIZE FALL RISK. MAY TEACH THE PATIENT FLOOR RECOVERY WHEN CLINICALLY APPROPRIATE PT / PAPER TESTER TO EDUCATE ON CVA SELF-MANAGEMENT] Future Scheduled Test AGENCY MAY PERFORM A RESUMPTION OF CARE VISIT FOLLOWING ANY HOSPITAL ADMISSION. OT TO EVALUATE, OBSERVE / ASSESS, AND MONITOR, LEAD MASSAGE THERAPIST TO OBSERVE AND MONITOR, PROVIDE SKILLED THERAPEUTIC INTERVENTION, ACTIVITY, EDUCATION, AND TRAINING TO ADDRESS; PERSONAL HYGIENE/GROOMING (OT/MEGAN) BATHING/SHOWERING (OT/LEAD MASSAGE THERAPIST) DRESSING (OT/LEAD MASSAGE THERAPIST) ACTIVITIES OF DAILY LIVING (OT/LEAD MASSAGE THERAPIST) MEAL PREPARATION AND CLEANUP (OT/LEAD MASSAGE THERAPIST) LIGHT HOUSEKEEPING (OT/MEGAN) TOILET TRANSFER (OT/MEGAN) BATH/SHOWER TRANSFER (OT/LEAD MASSAGE THERAPIST) ITEM RETRIEVAL AND TRANSPORTATION (OT/MEGAN) PERSONAL SAFETY AND EMERGENCY MANAGEMENT(OT/LEAD MASSAGE THERAPIST) POSTURAL CONTROL/BALANCE (OT/MEGAN) THERAPEUTIC EXERCISE (OT/LEAD MASSAGE THERAPIST) ENERGY CONSERVATION/ACTIVITY DEMAND (OT/MEGAN) OT/MEGAN TO MONITOR AND EDUCATE ON OXYGEN SATURATION DURING ADLS/IADLS, NOTIFY PHYSICIAN AND/OR THE RN CLINICAL HOME HEALTH OUTREACH COORDINATOR FOR PHYSICIAN NOTIFICATION AND IF O2 SATS BELOW 90% AFTER 10 MIN OF REST. OT/MEGAN TO MONITOR FOR SIGNS AND SYMPTOMS OF UTI AND EDUCATE PATIENT/CAREGIVER TO MINIMIZE RISK OF DEVELOPING A UTI. OT / LEAD MASSAGE THERAPIST TO IDENTIFY FALL RISK FACTORS; EDUCATE THE PATIENT/CAREGIVER ON WAYS TO REDUCE FALL RISK FACTORS AND ESTABLISH HOME EXERCISE PROGRAM TO MINIMIZE FALL RISK. MAY TEACH THE PATIENT FLOOR RECOVERY WHEN CLINICALLY APPROPRIATE. OT / LEAD MASSAGE THERAPIST TO EDUCATE ON CVA SELF-MANAGEMENT [code = AGENCY MAY PERFORM A RESUMPTION OF CARE VISIT FOLLOWING ANY HOSPITAL ADMISSION. OT TO EVALUATE, OBSERVE / ASSESS, AND MONITOR, MEGAN TO OBSERVE AND MONITOR, PROVIDE SKILLED THERAPEUTIC INTERVENTION, ACTIVITY, EDUCATION, AND TRAINING TO ADDRESS; PERSONAL HYGIENE/GROOMING (OT/LEAD MASSAGE THERAPIST) BATHING/SHOWERING (OT/MEGAN) DRESSING (OT/MEGAN) ACTIVITIES OF DAILY LIVING (OT/MEGAN) MEAL PREPARATION AND CLEANUP (OT/LEAD MASSAGE THERAPIST) LIGHT HOUSEKEEPING (OT/MEGAN) TOILET TRANSFER (OT/MEGAN) BATH/SHOWER TRANSFER (OT/MEGAN) ITEM RETRIEVAL AND TRANSPORTATION (OT/LEAD MASSAGE THERAPIST) PERSONAL SAFETY AND EMERGENCY MANAGEMENT(OT/LEAD MASSAGE THERAPIST) POSTURAL CONTROL/BALANCE (OT/MEGAN) THERAPEUTIC EXERCISE (OT/LEAD MASSAGE THERAPIST) ENERGY CONSERVATION/ACTIVITY DEMAND (OT/MEGAN) OT/LEAD MASSAGE THERAPIST TO MONITOR AND EDUCATE ON OXYGEN SATURATION DURING ADLS/IADLS, NOTIFY PHYSICIAN AND/OR THE RN CLINICAL HOME HEALTH OUTREACH COORDINATOR FOR PHYSICIAN NOTIFICATION AND IF O2 SATS BELOW 90% AFTER 10 MIN OF REST. OT/LEAD MASSAGE THERAPIST TO MONITOR FOR SIGNS AND SYMPTOMS OF UTI AND EDUCATE PATIENT/CAREGIVER TO MINIMIZE RISK OF DEVELOPING A UTI. OT / MEGAN TO IDENTIFY FALL RISK FACTORS; EDUCATE THE PATIENT/CAREGIVER ON WAYS TO REDUCE FALL RISK FACTORS AND ESTABLISH HOME EXERCISE PROGRAM TO MINIMIZE FALL RISK. MAY TEACH THE PATIENT FLOOR RECOVERY WHEN CLINICALLY APPROPRIATE. OT / MEGAN TO EDUCATE ON CVA SELF-MANAGEMENT] Goal Patient Goal - G ET STRONGER AND BACK TO PLOF Goal Provider Goal - Goal Provider Goal - Goal Provider Goal - PATIENT/CAREGIVER WILL VERBALIZE/DEMONSTRATE UNDERSTANDING OF FALL RISK FACTORS AND IMPLEMENT STRATEGIES TO MINIMIZE FALL RISK. PATIENT/CAREGIVER WILL VERBALIZE/DEMONSTRATE AN ABILITY TO ADHERE TO FALL REDUCTION SELF-MANAGEMENT AND LIFE-STYLE CHANGES BY 12/16/24 Goal Provider Goal - PATIENT / CAREGIVER WILL VERBALIZE/DEMONSTRATE UNDERSTANDING OF MEASURES TO MANAGE ALTERED GENITOURINARY STATUS BY END OF EPISODE. Goal Provider Goal - PATIENT/CAREGIVER WILL VERBALIZE/DEMONSTRATE UNDERSTANDING OF CARE AND MANAGEMENT OF URINARY TRACT INFECTION BY EOE.. Goal Provider Goal - PATIENT / CAREGIVER WILL VERBALIZE/DEMONSTRATE UNDERSTANDING OF MEASURES TO MANAGE ALTERED NEUROLOGICAL STATUS BY EOE. Goal Provider Goal - PATIENT / CAREGIVER WILL VERBALIZE/DEMONSTRATE CARE AND SELF-MANAGEMENT OF CVA TO MINIMIZE COMPLICATIONS AND AVOID HOSPITALIZATION BY END OF EPISODE. Goal Provider Goal - A PLAN OF CARE WILL BE ESTABLISHED THAT MEETS THE PATIENTS NEEDS. PATIENT WILL DEMONSTRATE OXYGEN SATURATION WITHIN NORMAL LIMITS OR PATIENTS OPTIMAL LEVEL ESTABLISHED BY THE PHYSICIAN THROUGHOUT CARE. CHANGES TO CO-MORBID CONDITIONS AND ANY NEW CONDITIONS WILL BE IDENTIFIED AND REPORTED TO THE PHYSICIAN. Goal Provider Goal - PATIENT / CAREGIVER WILL VERBALIZE / DEMONSTRATE UNDERSTANDING OF PAIN CONTROL MEASURES BY 12/16/24 Goal Provider Goal - PATIENT/CAREGIVER WILL VERBALIZE UNDERSTANDING OF SIGNS AND SYMPTOMS THAT PUT THE PATIENT AT RISK FOR HOSPITALIZATION /EMERGENCY ROOM VISITS, WHEN TO NOTIFY NURSE/PHYSICIAN OF COMPLICATIONS/DECLINE AND WHEN TO CALL 911. Goal Provider Goal - PATIENT / CAREGIVER WILL VERBALIZE/DEMONSTRATE UNDERSTANDING OF MEASURES TO MANAGE ALTERED CARDIOVASCULAR STATUS BY 12/16/24. Goal Provider Goal - PATIENT / CAREGIVER WILL VERBALIZE/DEMONSTRATE AN ABILITY TO ADHERE TO SELF-MANAGEMENT OF HTN TO MINIMIZE COMPLICATIONS AND AVOID HOSPITALIZATION BY END OF EPISODE. Goal Provider Goal - PATIENT / CAREGIVER WILL PROMPTLY REPORT SIGNS AND SYMPTOMS OF BLEEDING OR ADVERSE REACTIONS TO THE PHYSICIAN. PATIENT/CAREGIVER WILL VERBALIZE UNDERSTANDING OF ANTITHROMBOTIC THERAPY MANAGEMENT BY END OF EPISODE. Goal Provider Goal - PT LTG: PATIENT WILL DEMONSTRATE IMPROVED AMBULATION FROM MIN A TO INDEPENDENT WITHIN 9 WEEKS PT LTG: PATIENT WILL DEMONSTRATE IMPROVE STAIR SKILLS FROM MINIMAL ASSISTANCE TO INDEPENDENT WITHIN 9 WEEKS TO ALLOW PATIENT TO GET TO AND FROM CAR INDEPENDENTLY. PT LTG: PATIENT WILL DEMONSTRATE REDUCED FALL RISK EVIDENCED BY IMPROVED SELF- SELECTED WALKING SPEED (SSWS CUT SCORE 0.6 TO 0.9 INDICATES MODERATE FALL RISK, 0.6 M/S INDICATES HIGH FALL RISK) FROM 0.5 TO 1.1 WITHIN 9 WEEKS. PT LTG: PATIENT WILL DEMONSTRATE REDUCED FALL RISK EVIDENCED BY TUG TEST (CUT SCORE >11 SECONDS INDICATES INCREASED FALL RISK) IMPROVING FROM 18 TO 11 WITHIN 9 WEEKS. PT LTG: PATIENT WILL DEMONSTRATE IMPROVED FUNCTIONAL STRENGTH EVIDENCED BY FIVE TIMES SIT TO STAND TEST (CUT SCORE >12 SECONDS INDICATES AN INCREASED FALL RISK) IMPROVING FROM 20 TO 12 WITHIN 9 WEEKS. PT LTG: PATIENT WILL DEMONSTRATE INCREASED STRENGTH OF BILAT LES FROM 3+ TO 4/5 WITHIN 9 WEEKS IN ORDER TO RETURN TO INDEPENDENT TRANSFER AND AMBULATION SKILLS. PT STG: PATIENT WILL DEMONSTRATE IMPROVED ABILITY TO PERFORM SIT TO/FROM STAND TRANSFERS TO REDUCE THE RISK OF SKIN BREAKDOWN AND REDUCE FALL RISK FROM CGA TO INDEPENDENT WITHIN 4 WEEKS. PT STG: PATIENT WILL DEMONSTRATE IMPROVED ABILITY TO PERFORM CHAIR TRANSFERS TO REDUCE THE RISK OF SKIN BREAKDOWN AND FALL RISK FROM CGA TO INDEPENDENT WITHIN 4 WEEKS. PT LTG: PATIENT WILL BE INDEPENDENT WITH IMPLEMENTATION OF HEP WITHIN 5 WEEKS. PT LTG: PATIENT WILL DEMONSTRATE IMPROVED AMBULATION FROM MIN A TO INDEPENDENT WITHIN 9 WEEKS PT LTG: PATIENT WILL DEMONSTRATE IMPROVE STAIR SKILLS FROM MINIMAL ASSISTANCE TO INDEPENDENT WITHIN 9 WEEKS TO ALLOW PATIENT TO GET TO AND FROM CAR INDEPENDENTLY. PT LTG: PATIENT WILL DEMONSTRATE REDUCED FALL RISK EVIDENCED BY IMPROVED SELF- SELECTED WALKING SPEED (SSWS CUT SCORE 0.6 TO 0.9 INDICATES MODERATE FALL RISK, 0.6 M/S INDICATES HIGH FALL RISK) FROM 0.4 TO 0.8 WITHIN 9 WEEKS. PT LTG: PATIENT WILL DEMONSTRATE REDUCED FALL RISK EVIDENCED BY TUG TEST (CUT SCORE >11 SECONDS INDICATES INCREASED FALL RISK) IMPROVING FROM 22 TO 11 WITHIN 9 WEEKS. PT LTG: PATIENT WILL DEMONSTRATE IMPROVED FUNCTIONAL STRENGTH EVIDENCED BY FIVE TIMES SIT TO STAND TEST (CUT SCORE >12 SECONDS INDICATES AN INCREASED FALL RISK) IMPROVING FROM 30 TO 12 WITHIN 9 WEEKS. PT LTG: PATIENT WILL DEMONSTRATE INCREASED STRENGTH OF BILAT LES FROM 3+ TO 4/5 WITHIN 9 WEEKS IN ORDER TO RETURN TO INDEPENDENT TRANSFER AND AMBULATION SKILLS. PT STG: PATIENT WILL DEMONSTRATE IMPROVED ABILITY TO PERFORM SIT TO/FROM STAND TRANSFERS TO REDUCE THE RISK OF SKIN BREAKDOWN AND REDUCE FALL RISK FROM CGA TO INDEPENDENT WITHIN 4 WEEKS. PT STG: PATIENT WILL DEMONSTRATE IMPROVED ABILITY TO PERFORM CHAIR TRANSFERS TO REDUCE THE RISK OF SKIN BREAKDOWN AND FALL RISK FROM CGA TO INDEPENDENT WITHIN 4 WEEKS. PT LTG: PATIENT WILL BE INDEPENDENT WITH IMPLEMENTATION OF HEP WITHIN 5 WEEKS. PT LTG: PATIENT WILL MAINTAIN OXYGEN SATURATION WITHIN PHYSICIAN ORDERED PARAMETERS THROUGHOUT EPISODE OF CARE. PT LTG: PATIENT/CAREGIVER WILL DEMONSTRATE ADHERENCE TO FALL REDUCTION SELF-MANAGEMENT AND REDUCING FALL RISK FACTORS TO MINIMIZE FALL RISK BY END OF EPISODE. PT LTG: PATIENT/CAREGIVER WILL BE VERBALIZE UNDERSTANDING OF A CVA, SIGNS/SYMPTOMS TO REPORT, WELL SELF-MANAGEMENT AND LIFE-STYLE CHANGES BY END OF EPISODE. Goal Provider Goal - OT LTG: PATIENT WILL DEMONSTRATE IMPROVED ABILITY TO PERFORM PERSONAL HYGIENE FROM MINIMAL ASSISTANCE TO MODIFIED INDEPENDENCE WITHIN FOUR WEEKS . OT LTG: PATIENT WILL DEMONSTRATE IMPROVED ABILITY TO PERFORM BATHING/SHOWERING UTILIZING ENERGY CONSERVATION AND WORK SIMPLIFICATION TECHNIQUES AND REDUCE CAREGIVER BURDEN FROM MOD A TO MODIFIED INDEPENDENCE WITHIN 5 WEEKS. OT LTG: PATIENT WILL DEMONSTRATE IMPROVED ABILITY TO PERFORM UPPER BODY AND LOWER BODY DRESSING TO REDUCE CAREGIVER BURDEN FROM MINIMAL ASSISTANCE TO MODIFIED INDEPENDENCE WITHIN 4 WEEKS. OT LTG: PATIENT WILL DEMONSTRATE IMPROVEMENT IN MODIFIED DAYNE INDEX SCORE FROM 59 TO 70/100 INDICATING DECREASED DEPENDENCY ON CAREGIVER ASSISTANCE WITH ACTIVITIES OF DAILY LIVING WITHIN 5 WEEKS. OT LTG: PATIENT WILL DEMONSTRATE THE ABILITY TO COMPLETE MEAL PREPARATION AND CLEANUP TO REDUCE CAREGIVER BURDEN FROM MOD A TO MODIFIED INDEPENDENCE WITHIN 5 WEEKS. OT LTG: PATIENT WILL DEMONSTRATE THE ABILITY TO COMPLETE LIGHT HOUSEKEEPING FOR IMPROVED QUALITY OF LIFE FROM MIN A TO MODIFIED INDEPENDENCE WITHIN 5 WEEKS. OT LTG: PATIENT WILL DEMONSTRATE IMPROVED ABILITY TO PERFORM TOILET TRANSFERS TO REDUCE FALL RISK AND RISK OF INCONTINENCE AND UTI DEVELOPMENT FROM CG A / MIN A TO MODIFIED INDEPENDENCE WITHIN 4 WEEKS. OT LTG: PATIENT WILL DEMONSTRATE IMPROVED ABILITY AND SAFETY TO PERFORM BATH/SHOWER TRANSFER FROM MIN A TO SUPERVISION WITHIN 5 WEEKS OT LTG: PATIENT WILL BE ABLE TO SAFELY TRANSPORT ITEMS IN KITCHEN FROM MIN A TO MODIFIED INDEPENDENCE USING WALKER IN ORDER TO ASSIST WITH MEAL PREPARATION WITHIN 5 WEEKS. OT LTG: PATIENT WILL DEMONSTRATE THE ABILITY TO COMPLETE PERSONAL SAFETY AND EMERGENCY MANAGEMENT PROCEDURES FROM MIN A TO MODIFIED INDEPENDENCE WITHIN 5 WEEKS. OT LTG: PATIENT WILL DEMONSTRATE IMPROVED POSTURAL CONTROL AND DECREASED FALL RISK EVIDENCED BY AN IMPROVEMENT IN FUNCTIONAL REACH SCORE FROM 4 TO 7 INCHES WITHIN 5 WEEKS IN ORDER TO ASSIST WITH SAFE REACHING DURING KITCHEN ACTIVITIES. OT LTG: PATIENT WILL DEMONSTRATE IMPROVED UB MUSCLE STRENGTH EVIDENCED BY AN IMPROVEMENT IN MMT/FUNCTIONAL STRENGTH FROM 3+/5 TO 4+/5 WITHIN 5 WEEKS IN ORDER TO ASSIST WITH IADL TASKS. OT LTG: PATIENT WILL MAINTAIN OXYGEN SATURATION WITHIN PHYSICIAN ORDERED PARAMETERS THROUGHOUT THE EPISODE OF CARE. OT GOAL: PATIENT WILL NOT EXHIBIT SIGNS AND SYMPTOMS OF UTI THROUGHOUT THE EPISODE OF CARE. OT LTG: PATIENT/CAREGIVER WILL BE ABLE TO IMPLEMENT RECOMMENDATIONS SPECIFIC TO FALL REDUCTION FOR IMPROVED ADL/IADL COMPLETION AND HOME SAFETY BY END OF EPISODE. OT GOAL: PATIENT/CAREGIVER WILL BE VERBALIZE UNDERSTANDING OF A CVA, SIGNS/SYMPTOMS TO REPORT, WELL SELF-MANAGEMENT AND LIFE-STYLE CHANGES BY END OF EPISODE. Encounters Start Date/Time End Date/Time Encounter Type Admission Type Attending [facility] Care Facility Care Department Encounter ID Discharge Date Discharge Status Discharge Condition Discharge Reason Percent Goals Met 2024-10-18 00:00:00 2024-12-16 00:00:00 Outpatient NEW ADMISSION [facility] [id number] 15.69
--- NOTE | 2024-11-19 13:54 | A.OFFPC_ITS ---
Vital Signs 11/19/24 13:59 Height 5 ft 6 in Weight 173 lb 6 oz BMI 28.0 BP 102/78 Blood Pressure Location Rt brachial Position Sitting Respiration 14 Pulse 86 Pulse Source Pulse Oximeter Temp 97.2 F Temp Source Oral Pulse Oximetry (%) 92 Oxygen Delivery Method Room Air Intake Visit Reasons: HTN and CVA Intake Note: patient is scheduled for follow-up HNT and CVA nand patient has no concerns. Allergies No Known Allergies Allergy (Verified 11/19/24 13:58) Medication List - Last Reconciled 11/19/24 by Roland Walsh MD amlodipine 5 mg See Protocol PO DAILY 90 days aspirin 81 mg PO DAILY atorvastatin 40 mg PO DAILY 90 days cefuroxime axetil 250 mg PO BID 3 days docusate sodium (Colace) 100 mg PO DAILY melatonin 6 mg (2 x 3 mg) PO BEDTIME PRN metoprolol tartrate 25 mg PO DAILY 90 days sennosides (senna) 8.6 mg PO DAILY Tobacco use date assessed: 11/19/24 Fall risk assessment: 1 Fall in past year Dental Screening Dental Screen Date: 11/19/24 Did you have a dental visit in the last 12 months?: Yes Did you have a dental problem in the last 6 months where you did not have access to dental care?: No Was dental information given to patient?: No HPI HTN and CVA HPI Details 89 y/o female presents to f/u HTN, CVA. MRI at hospital had showed R thalamic infarct. Had seen Neurology 10/28/24. Pt had been doing well. Recommended good blood pressure control. Blood pressure today 102/78, 86p. She is on amlodipine 5mg, metoprolol 25mg daily. BP at home have been in the 120/70s range. Pt notes she continues her physical therapy. HPI Comments History of Present Illness Details Documentation assistance for Roland Walsh MD, was provided by Waqas Carlos,? Supportability Engineer on 11/19/2024 at 2:20 PM EST. I, Dr. Walsh, have read, observed, and verified documentation. ? [facility] Medical History (Updated 10/15/24 @ 00:02 by Jane Barron) HTN (hypertension), benign Polio Surgical History History of hip replacement Social History Household Members: Spouse Housing: House Do you presently have visiting nurse or other home services: No Patient Tobacco Use Status: Never used Tobacco e-Cigarette/Vaping Use: Never Used Second Hand Smoke Exposure: No service: No Current occupational status: retired Current occupational exposures/hazards: No Cognitive needs: No Hearing needs: No Vision needs: No Questionnaire Thrive Questionnaire Date Thrive assessed: 11/19/24 I am a: Patient What is your living situation today?: I have a steady place to live THRIVE Score: 0 QUINN-7 AMB Questionnaire UQINN-7 Date QUINN - 7 assessed: 03/01/23 Source: Developed by Drs. Car Hayward, Ingrid Canales, Óscar Aleman and colleagues, with an educational neil from [employer]. Review of Systems Const Denies chills, Denies fatigue, Denies fever(s), Denies headache(s) and Denies weakness ENT Denies dizziness and Denies headache(s) Card Denies dyspnea Resp Denies cough, Denies dyspnea, Denies wheezing and Denies other (shortness of breath) Musc Denies numbness and Denies tingling Neuro Denies dizziness, Denies headache(s), Denies numbness, Denies tingling and Denies weakness Psych Denies anxiety and Denies depression Endo Denies fatigue Aller/Immun Denies wheezing Physical exam (Primary Care) Vital Signs: Last Vital Signs Temp 97.2 F 11/19/24 13:59 Pulse 86 11/19/24 13:59 Resp 14 11/19/24 13:59 BP 102/78 11/19/24 13:59 Pulse Ox 92 11/19/24 13:59 Oxygen Delivery Method Room Air 11/19/24 13:59 BMI result Body Mass Index 28.0 Tobacco/Smoking Status: Tobacco use Status Tobacco use date assessed 11/19/24 11/19/24 14:06 Patient Tobacco Use Status Never used Tobacco 11/19/24 13:55 e-Cigarette/Vaping Use Never Used 11/19/24 13:55 Thrive Assessment: Date of Thrive Assessment Date Thrive assessed 11/19/24 11/19/24 14:06 Const General: well developed; No acute distress Nutritional Appearance: well nourished Orientation/consciousness: patient oriented x3 [facility] Head: Yes normocephalic and Yes atraumatic Eyes General: appearance normal, both eyes and all related structures Pupils: Equal, round and reactive pupils present EOM: EOMs intact bilaterally Resp Effort & Inspection: normal respiratory effort Auscultation: clear to auscultation bilaterally Cardio Rate: regular rate Rhythm: regular rhythm Heart sounds: S1 normal heart sound present, S2 normal heart sound present, no gallops, no murmurs and no rubs Neuro General: patient oriented x3 and gait normal Cranial nerves: Yes Equal, round and reactive pupils present Psych Affect: normal affect Coding Level of Care Code Est Pt Level 3 (70416) Diagnoses CVA (cerebral vascular accident) I63.9 HTN (hypertension), benign I10 Left-sided weakness R53.1 Assessment & Plan Assessment & Plan (1) CVA (cerebral vascular accident): Code(s): I63.9 - Cerebral infarction, unspecified Category: Medical (2) HTN (hypertension), benign: Code(s): I10 - Essential (primary) hypertension Category: Medical (3) Left-sided weakness: Code(s): R53.1 - Weakness Category: Medical Plan 81-year-old?female?s/p?stroke Recently?saw?Neurology?and?they?are?pleased?with?her?improvements. Her?blood?pressure?appears?well?controlled. Goal?is?less?than?130/80. She?is?taking?her?medications?as?prescribed Undergoing?physical?therapy?and?occupational?therapy Active?and?getting?regular?exercise?and?using?her?walker. She?will?let?me?know?if?anythin g?changes?with?her?medications?or?blood?pressure?or?has?any?new?concerns.
[2024-11-19 13:59] VITALS: BP 102/78; PULSE 86; RESP 14; TEMP 36.2; O2SAT 92; BMI 28.0
== END 2024-11-19 14:49 | disposition home or self-care (01) ==
LOC: HO.HMCFM 13:34
PROVIDERS: PCP Family Medicine; Visit Provider Family Medicine
DX: I63.9 Cerebral infarction, unspecified (principal); I10 Essential (primary) hypertension; R53.1 Weakness

== ENCOUNTER → 2024-11-19 13:33 | Outpatient (BNVA) | payer MEDICARE, BC, SELFPAY | PROVIDERS: PCP Family Medicine; Visit Provider Family Medicine | DX: I63.9 Cerebral infarction, unspecified (principal); I10 Essential (primary) hypertension; R53.1 Weakness | CPT/HCPCS: 99212 ==

== ENCOUNTER → 2025-01-03 23:59 | Outpatient (BNV) | payer MEDICARE, BC, SELFPAY | PROVIDERS: PCP Family Medicine; Visit Provider Family Medicine | DX: I69.354 Hemiplegia and hemiparesis following cerebral infarction affecting left non-dominant side (principal); J44.9 Chronic obstructive pulmonary disease, unspecified | CPT/HCPCS: G0180 ==

== ENCOUNTER → 2025-01-10 23:59 | Outpatient (BNV) | payer MEDICARE, BC, SELFPAY | PROVIDERS: PCP Family Medicine; Visit Provider Family Medicine | DX: I69.354 Hemiplegia and hemiparesis following cerebral infarction affecting left non-dominant side (principal) | CPT/HCPCS: G0180 ==

== ENCOUNTER 2025-02-14 07:51 | Outpatient (REF) | payer MEDICARE, BC, SELFPAY ==
--- OUTSIDE RECORDS SUMMARY | 2016-08-31 20:00 | XMS_ITS | Continuity of Care Document ---
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, [address], [place], [place], [place], [id number], [place] tel:[phone] [facility] ER No Information 7 Alfredo Miguel. [address] [facility] [address] Monika Mercado, [place], [place], [id number] , [place]. tel:[phone] Referring Provider: Eze Modi, [address] [place] [address], [place], [place], [facility]. tel:[phone] Family History Family Member Type Diagnosis Age At Onset No Information Payers Payer name Insurance type Covered democrat ID Authoriza tion(s) Medicare Part B MB [id number] [facility] [facility] [id number] Social History Type Description Quantity Date Captured Comments Sex Female Smoking Status No Information Chief Complaint And Reason For Visit No Information Reason For Referral Reason For Referral No Information History Of Present Illness Encounter Date Complaint History Of Prese nt Illness No Information Functional Status Date Functional Assessmen t No Information Instructions Date Instruction Additional Infor mation No Information Assessments Type Assessment Date No Information Patient Care Teams Name Effective Dates (start - stop) Status Members No Information
--- OUTSIDE RECORDS SUMMARY | 2025-02-14 07:53 | XMS_ITS | Clinical Summary ---
Author Organization [facility] Address [address] [address] Phone Care Team Providers Care Letter Of Credit Document Examiner Name Role Phone Lianet Mayer MD Primary Care Provider + Allergies No known active allergies Medications No known medications Active Problems No known active problems Immunizations Immunization Administration Dates Next Due Pneumococcal polysaccharide PPSV23 10/30/2010(De ferred: Patient Decision) Family History Medical History Relation Comments Coronary artery disease Mother Coronary Artery Disease Relation Status Comments Mother Social History Tobacco Use Types Packs/Day Years Used Date Smoking Tobacco: Never Education Answer Date Recorded Are you interested in more education? Not on christos e 10/26/2022 Are you concerned about learning? Not on file 10/26/2022 No 10/26/2022 No 10/26/2022 Digital Access Answer Date Recorded No 11/20/2022 No 11/20/2022 No 11/20/2022 Reliable internet access at home? Not on file 11/20/2022 Device with a working camera? Not on file Comments Unknown Sex and Gender Information Value Date Recorded Sex Assigned at Not on file Legal Sex Female 5:25 PM EST Gender Identity Not on file Sexual Orientation Not on file Last Filed Vital Signs Vital Sign Reading Time Taken Comments Blood Pressure 150/80 10/17/2013 9:02 AM EDT Pulse - - Temperature 36.6 C (97.8 F) 10/25/2018 8:13 AM EDT Respiratory Rate - - Oxygen Saturation - - Inhaled Oxygen Concentration - - Weight 83.9 kg (185 lb) 10/25/2018 8:13 AM EDT Height 165.7 cm (5' 5.25 ) 10/25/2018 8:13 AM ED T Body Mass Index 30.55 10/25/2018 8:13 AM EDT Plan of Treatment Health Maintenance Due Date Last Done Comments DEPRESSION SCREENING 1948 PNEUMOCOCCAL VACCINES (50+ years) (1 of 1 - PCV) 1986 ZOSTER VACCINES (1 of 2) 1986 OSTEOPOROSIS SCREENING INITI AL (ONE-TIME) 2001 RSV VACCINE (1 - 1-dose 75+ series) 09/26/2011 Adult Td,Tdap Booster 04/27/2020 04/27/2010 COVID-19 VACCINE (3 - 2023-2 5 season) 2024 10/22/2020, 10/01/2020 HEPATITIS A VACCINES Aged Out No long er eligible based on patient's age to complete this topic HIB VACCINES Aged Out No longer eligi ble based on patient's age to complete this topic MENINGOCOCCAL VACCINES (ACWY) Aged Out No longer eligible based on patient's age to complete this topic MENINGOCOCCAL VACCINES (B) Aged Out N o longer eligible based on patient's age to complete this topic Medical Devices Not on file Insurance MEDICARE PART A & [facility] A & B PPO MEDICARE PART A & B [facility] OUT OF STATE PPO MEDICARE PART A & B [facility] A & B [facility] MED[facility]ARE PART A & B [facility] PPO MEDICARE PART A & B [employer] OUT OF STATE PPO (Home) [address] [id number] [id number] MEDICARE PART A & B [employer] OUT OF STATE PPO MEDICARE PART A & B [facility] PPO Care Teams Letter Of Credit Document Examiner Relationship Specialty Start Date End Date Lianet Mayer MD [address] [place] [address] PCP - General Pediatrics 10/01/15 Additional Source Comments The information contained in this document represents components of the legal health record. It is not the complete legal health record.[facility]
[2025-02-14 11:11] LABS: Appearance Urine Clear; Glucose Urine UA Negative (Negative); PH 7.0 (5.0-9.0); Specific Gravity - Urine 1.010 (1.005-1.025); UMIC TRIGGER UACC YES
[2025-02-14 11:30] LABS: UACC Culture Trigger YES
[2025-02-14 11:51] LABS: Alanine Aminotransferase 28 U/L (0-31); Albumin Level 4.3 g/dL (3.5-5.0); Alkaline Phosphatase 92 U/L (39-117); Anion Gap 12 (12-20); Aspartate Amino Transferase 26 U/L (5-31); Blood Urea Nitrogen 10 mg/dL (9-16); Calcium 9.6 mg/dL (8.4-10.2); Carbon Dioxide 24 mmol/L (22-29); Chloride 103 mmol/L (96-108); Estimated Glomerular Filt Rate > 60; Potassium 5.1 mmol/L (3.3-5.1); Sodium 134 mmol/L (135-145); Total Protein 6.7 g/dL (6.5-8.0)
[2025-02-14 11:57] LABS: Microalbum/Creatinine Ratio Ur 8.5 ug/mg cr (<30)
== END 2025-02-14 07:52 | disposition home or self-care (01) ==
LOC: HO.WFDLDS 07:51
PROVIDERS: Visit Provider Family Medicine
DX: Z00.00 Encounter for general adult medical examination without abnormal findings (principal); I10 Essential (primary) hypertension; I63.9 Cerebral infarction, unspecified
CPT/HCPCS: 36415; 80053; 81001; 82043; 82570; 87086

== ENCOUNTER 2025-02-21 09:08 | Outpatient (AMB) | payer MEDICARE, BC, SELFPAY ==
--- OUTSIDE RECORDS SUMMARY | 2016-08-31 20:00 | XMS_ITS | Continuity of Care Document ---
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 Inter Advance Directives Directive Yes / No Effective Date File Name No Information Encounters Encounter Description Practice Location Reason(s) For Visit Diagnoses Date Provider Providers Copied on Encounter [facility], [address], [place], [place], [place], [id number], [place] tel:[phone] [facility] No Information 7 Alfredo Miguel. [address] [facility] Ayad Monika Mercado, [place], [place], [id number] , [place]. tel:[phone] Referring Provider: Eze Modi, [address] [place] [address], [place], [place], [facility]. tel:[phone] Family History Family Member Type Diagnosis Age At Onset No Information Payers Payer name Insurance type Covered republican ID Authoriza tion(s) Medicare Part B MB [id number] [place] [facility] [id number] Social History Type Description Quantity Date Captured [...]
--- NOTE | 2025-02-21 09:16 | A.OFFPC_ITS ---
Vital Signs 02/21/25 09:25 02/21/25 09:46 Height 5 ft 6 in Weight 174 lb 2 oz BMI 28.1 BP 147/62 H 134/76 Blood Pressure Location Lt brachial Rt brachial Position Sitting Sitting Respiration 16 Pulse 77 Pulse Source Pulse Oximeter Temp 97.5 F Temp Source Oral Pulse Oximetry (%) 98 Oxygen Delivery Method Room Air Intake Visit Reasons: f/u HTN/Dental clearance for cleaning Intake Note: patient here for follow up on HTN and dental clearance for cleaning Furniture Repairer Required: No Is last menstrual period known: No Post menopausal: No Patient : No Allergies No Known Allergies Allergy (Verified 02/21/25 09:22) Tobacco use date assessed: 02/21/25 Fall risk assessment: 2 + Falls in past year Last assessed Fall Risk: 02/21/25 Dental Screening Dental Screen Date: 02/21/25 Did you have a dental visit in the last 12 months?: Yes Did you have a dental problem in the last 6 months where you did not have access to dental care?: No Was dental information given to patient?: Patient has dentist HPI f/u HTN/Dental clearance for cleaning HPI Details 89 y/o female presents to f/u HTN. Blood pressure today 134/76. She is on amlodipine 5mg, metoprolol 25mg daily. Hx of CVA. Most recent renal functions look fine. [facility] Medical History (Updated 02/21/25 @ 10:40 by Roland Walsh MD) HTN (hypertension), benign Polio Surgical History History of hip replacement Social History Household Members: Spouse Housing: House Do you presently have visiting nurse or other home services: No Patient Tobacco Use Status: Never used Tobacco e-Cigarette/Vaping Use: Never Used Second Hand Smoke Exposure: No Patient : No service: No Current occupational status: retired Current occupational exposures/hazards: No Cognitive needs: No Hearing needs: No Vision needs: No Questionnaire PHQ-9 Over the last 2 weeks, how often have you been bothered by any of the following problems? 1. Little interest or pleasure in doing things: not at all 2. Feeling down, depressed, or hopeless: not at all 3. Trouble falling or staying asleep, or sleeping too much: not at all 4. Feeling tired or having little energy: not at all 5. Poor appetite or overeating: not at all 6. Feeling bad about yourself - or that you are a failure or have let yourself or your family down: not at all 7. Trouble concentrating on things, such as reading the newspaper or watching television: not at all 8. Moving or speaking so slowly that other people could have noticed. Or the opposite - being so fidgety or restless that you have been moving around a lot more than usual: not at all 9. Thoughts that you would be better off or of hurting yourself in some way: not at all Total score: 0 Source: Developed by Drs. Car Hayward, Ingrid Canales, Óscar Aleman and colleagues, with an educational neil from [employer]. Thrive Questionnaire Date Thrive assessed: 11/19/24 I am a: Patient What is your living situation today?: I have a steady place to live Within the past 12 months, did the food you bought not last and you didn't have the money to get more?: Never true Within the past 12 months, did you worry whether your food would run out before you got money to buy more?: Never true Do you have trouble paying for medicines?: No Do you have trouble getting transportation to medical appointments?: No Do you have trouble paying your heating and electricity bill?: No Do you have trouble taking care of your child, family member or friend?: No Do you have trouble with day-to-day activities such as bathing, preparing meals, shopping, managing finances, etc.?: No Are you currently unemployed and looking for a job?: No Are you interested in more education?: No Please select the resources that you would like help with: None Currently or been in a relationship where the following occur: No concerns reported THRIVE Score: 0 AUDIT C Alcohol Use Questionnaire (AUDIT-C) 1. How often do you have a drink containing alcohol?: Never Total Score: 0 QUINN-7 AMB Questionnaire QUINN-7 Date QUINN - 7 assessed: 03/01/23 Feeling nervous, anxious, or on edge: 0 = Not at all Not being able to stop or control worryin = Not at all Worrying too much about different things: 0 = Not at all Trouble relaxin = Not at all Being so restless that it is hard to sit still: 0 = Not at all Becoming easily annoyed or irritable: 0 = Not at all Feeling afraid as if something awful might happen: 0 = Not at all Total QUINN-7 score (0-4 normal; 5-9 mild; 10-14 moderate; 15-21 severe): 0 Source: Developed by Drs. Car Hayward, Ingrid Canales, Óscar Aleman and colleagues, with an educational neil from [employer]. Review of Systems Const Denies chills, Denies fatigue, Denies fever(s), Denies headache(s) and Denies weakness ENT Denies dizziness and Denies headache(s) Card Denies chest pain, Denies lightheadedness, Denies dyspnea and Denies other (Palp itations) Resp Denies cough, Denies dyspnea, Denies wheezing and Denies other ( shortness of breath) Musc Denies numbness and Denies tingling Neuro Denies dizziness, Denies headache(s), Denies numbness, Denies tingling, Denies paresthesias and Denies weakness Psych Denies anxiety and Denies depression Endo Denies fatigue Aller/Immun Denies wheezing Physical exam (Primary Care) Vital Signs: Last Vital Signs Temp 97.5 F 02/21/25 09:25 Pulse 77 02/21/25 09:25 Resp 16 02/21/25 09:25 BP 134/76 02/21/25 09:46 Pulse Ox 98 02/21/25 09:25 Oxygen Delivery Method Room Air 02/21/25 09:25 BMI result Body Mass Index 28.1 Tobacco/Smoking Status: Tobacco use Status Tobacco use date assessed 02/21/25 02/21/25 09:29 Patient Tobacco Use Status Never used Tobacco 02/21/25 09:20 e-Cigarette/Vaping Use Never Used 02/21/25 09:20 PHQ-9: PHQ-9 Score PHQ-9: Total score 0 02/21/25 10:16 Thrive Assessment: Date of Thrive Assessment Date Thrive assessed 11/19/24 02/21/25 09:20 Currently or been in a relationship where the following occur: No concerns reported Const General: no acute distress and well developed Nutritional Appearance: well nourished Orientation/consciousness: patient oriented x3 HENMT Head: Yes normocephalic and Yes atraumatic Eyes General: appearance normal, both eyes and all related structures Pupils: Equal, round and reactive pupils present EOM: EOMs intact bilaterally Resp Effort & Inspection: normal respiratory effort Auscultation: clear to auscultation bilaterally Cardio Rate: regular rate Rhythm: regular rhythm Heart sounds: S1 normal heart sound present, S2 normal heart sound present, no gallops, no murmurs and no rubs Neuro General: patient oriented x3 and gait normal Cranial nerves: Yes Equal, round and reactive pupils present Psych Affect: normal affect Coding Level of Care Code Est Pt Level 3 (14459) Diagnoses Hypertension I10 H/O: CVA (cerebrovascular accident) Z86.73 Assessment & Plan Assessment & Plan (1) Hypertension: Code(s): I10 - Essential (primary) hypertension Category: Medical Plan: Blood pressure is fairly well controlled. Goal is less 130/80 Continue current medications Watch salt and sodium (2) H/O: CVA (cerebrovascular accident): Code(s): Z86.73 - Personal history of transient ischemic attack (TIA), and cerebral infarction without residual deficits Category: Medical Plan: Followed by neurology History of ischemic stroke 6 months ago. Echocardiogram shows mild mitral valve regurgitation, mild tricuspid regurgitation. Otherwise unremarkable. Plan Patient would like to get dental cleanings and needs clearance. No contraindications to dental cleanings. Continue aspirin and atorvastatin
[2025-02-21 09:25] VITALS: BP 147/62; PULSE 77; RESP 16; TEMP 36.4; O2SAT 98; BMI 28.1
[2025-02-21 09:46] VITALS: BP 134/76
--- OUTSIDE RECORDS SUMMARY | 2025-02-21 10:01 | XMS_ITS | Clinical Summary ---
Author Organization [facility] Address [address] [address] Phone Care Team Providers Care Web Development Consultant Name Role Phone Lianet Mayer MD Primary [...] file Insurance [facility] B PPO MEDICARE PART A & B [facility] OUT OF STATE PPO MEDICARE PART A & B [facility] PPO MEDICARE [facility] A & B [facility] PPO MEDICARE PART A & B [facility] PPO MEDICARE PART A & B [employer] OUT OF STATE PPO (Home) [address] [place] [place] [id number] MEDICARE PART A & B [employer] OUT OF STATE PPO MEDICARE PART A & B [facility] PPO Care Teams Web Development Consultant Relationship Specialty Start Date End Date Lianet Mayer MD [address] [place] [address] PCP - General Pediatrics 10/01/15 Additional Source Comments The information contained in this document represents components of the legal health record. It is not the complete legal health record.[facility]
== END 2025-02-21 10:55 | disposition home or self-care (01) ==
LOC: HO.HMCFM 09:08
PROVIDERS: PCP Family Medicine; Visit Provider Family Medicine
DX: I10 Essential (primary) hypertension (principal); Z86.73 Personal history of transient ischemic attack (TIA), and cerebral infarction without residual deficits

== ENCOUNTER → 2025-02-21 09:08 | Outpatient (BNVA) | payer MEDICARE, BC, SELFPAY | PROVIDERS: PCP Family Medicine; Visit Provider Family Medicine | DX: I10 Essential (primary) hypertension (principal); Z86.73 Personal history of transient ischemic attack (TIA), and cerebral infarction without residual deficits | CPT/HCPCS: 99212 ==

== ENCOUNTER 2025-05-28 11:10 | Outpatient (AMB) | payer MEDICARE, BC, SELFPAY ==
--- NOTE | 2025-05-28 11:13 | A.OFFPC_ITS ---
Vital Signs 05/28/25 11:40 05/28/25 11:58 Height 5 ft 6 in Weight 181 lb 6 oz BMI 29.3 BP 203/88 H 158/92 H Blood Pressure Location Rt brachial Rt brachial Position Sitting Respiration 16 Pulse 81 Pulse Source Pulse Oximeter Temp 97.5 F Temp Source Oral Pulse Oximetry (%) 97 Oxygen Delivery Method Room Air Intake Visit Reasons: f/u HTN Intake Note: patient here for follow up on HTN Uphol[employer] Department Supervisor Required: No Is last menstrual period known: No Post menopausal: No Patient : No Allergies No Known Allergies Allergy (Verified 05/28/25 11:39) Medication List - Last Reconciled 05/28/25 by Roland Walsh MD amlodipine 5 mg See Protocol PO DAILY 90 days aspirin 81 mg PO DAILY atorvastatin 40 mg PO DAILY 90 days docusate sodium (Colace) 100 mg PO DAILY metoprolol tartrate 25 mg PO DAILY 90 days Tobacco use date assessed: 05/28/25 Fall risk assessment: 1 Fall in past year Last assessed Fall Risk: 05/28/25 Dental Screening Dental Screen Date: 05/28/25 Did you have a dental visit in the last 12 months?: Yes Did you have a dental problem in the last 6 months where you did not have access to dental care?: No Was dental information given to patient?: Patient has dentist HPI f/u HTN HPI Details 89 y/o female presents to f/u HTN. Hx of CVA. Blood pressure today elevated at 203/88, 81p. She is on amlodipine 5mg, metoprolol 25mg daily. [facility] Medical History (Updated 02/21/25 @ 10:40 by Roland Walsh MD) HTN (hypertension), benign Polio Surgical History History of hip replacement Social History Household Members: Spouse Housing: House Do you presently have visiting nurse or other home services: No Patient Tobacco Use Status: Never used Tobacco e-Cigarette/Vaping Use: Never Used Second Hand Smoke Exposure: No service: No Current occupational status: retired Current occupational exposures/hazards: No Cognitive needs: No Hearing needs: No Vision needs: No Questionnaire Thrive Questionnaire Date Thrive assessed: 02/21/25 I am a: Patient What is your living situation today?: I have a steady place to live Within the past 12 months, did the food you bought not last and you didn't have the money to get more?: Never true Within the past 12 months, did you worry whether your food would run out before you got money to buy more?: Never true Do you have trouble paying for medicines?: No Do you have trouble getting transportation to medical appointments?: No Do you have trouble paying your heating and electricity bill?: No Do you have trouble taking care of your child, family member or friend?: No Do you have trouble with day-to-day activities such as bathing, preparing meals, shopping, managing finances, etc.?: No Are you currently unemployed and looking for a job?: No Are you interested in more education?: No Please select the resources that you would like help with: None Currently or been in a relationship where the following occur: No concerns reported THRIVE Score: 0 QUINN-7 AMB Questionnaire QUINN-7 Date QUINN - 7 assessed: 03/01/23 Source: Developed by Drs. Car Hayward, Ingrid Canales, Óscar Aleman and colleagues, with an educational neil from [employer]. Review of Systems Const Denies chills, Denies fatigue, Denies fever(s), Denies headache(s) and Denies weakness ENT Denies dizziness and Denies headache(s) Card Denies dyspnea Resp Denies cough, Denies dyspnea, Denies wheezing and Denies other (shortness of breath) Musc Denies numbness and Denies tingling Neuro Denies dizziness, Denies headache(s), Denies numbness, Denies tingling and Denies weakness Psych Denies anxiety and Denies depression Endo Denies fatigue Aller/Immun Denies wheezing Physical exam (Primary Care) Vital Signs: Last Vital Signs Temp 97.5 F 05/28/25 11:40 Pulse 81 05/28/25 11:40 Resp 16 05/28/25 11:40 BP 158/92 H 05/28/25 11:58 Pulse Ox 97 05/28/25 11:40 Oxygen Delivery Method Room Air 05/28/25 11:40 BMI result Body Mass Index 29.3 Tobacco/Smoking Status: Tobacco use Status Tobacco use date assessed 05/28/25 05/28/25 11:45 Patient Tobacco Use Status Never used Tobacco 05/28/25 11:15 e-Cigarette/Vaping Use Never Used 05/28/25 11:15 Thrive Assessment: Date of Thrive Assessment Date Thrive assessed 02/21/25 05/28/25 11:15 Currently or been in a relationship where the following occur: No concerns reported Const General: well developed; No acute distress Nutritional Appearance: well nourished Orientation/consciousness: patient oriented x3 HENMT Head: Yes normocephalic and Yes atraumatic Eyes General: appearance normal, both eyes and all related structures Pupils: Equal, round and reactive pupils present EOM: EOMs intact bilaterally Resp Effort & Inspection: normal respiratory effort Neuro General: patient oriented x3 and gait normal Cranial nerves: Yes Equal, round and reactive pupils present Psych Affect: normal affect Coding Level of Care Code Est Pt Level 4 (25872) Diagnoses Hypertension I10 Assessment & Plan Assessment & Plan (1) Hypertension: Code(s): I10 - Essential (primary) hypertension Category: Medical Plan: Blood pressure very high on presentation and decreases somewhat with relaxation. Still significantly above goal of less than 130/80. No evidence of end-organ damage such as headaches, vision changes, confusion for dizziness, chest pain or shortness of breath. Normal urine output. She is taking amlodipine and metoprolol as prescribed. Adding hydrochlorothiazide Will have her return later this week for nurse visit and adjust further Medications: New hydrochlorothiazide 25 mg PO QAM 30 tabs 3RF 30 days hydrochlorothiazide 50 mg PO QAM 30 days 30 tabs 3RF
[2025-05-28 11:40] VITALS: BP 203/88; PULSE 81; RESP 16; TEMP 36.4; O2SAT 97; BMI 29.3
[2025-05-28 11:58] VITALS: BP 158/92
--- OUTSIDE RECORDS SUMMARY | 2025-05-28 13:22 | XMS_ITS | Clinical Summary ---
Author Organization [facility] Address [address] [address] Phone Care Team Providers Care Transverse Abdominal Muscle Surgeon Name Role Phone Lianet Mayer MD Primary [...] series) 09/26/2011 Adult Td,Tdap Booster 04/27/2020 04/27/2010 INFLUENZA VACCINE (#1) 2025 COVID-19 VACCINE (3 - 2024-2 6 season) 2025 10/22/2020, 10/01/2020 HEPATITIS A VACCINES Aged Out [...] file Insurance MEDICARE PART A & B [facility] PPO MEDICARE PART A & B [facility] PPO MEDICARE PART A & B [facility] OUT STATE PPO [facility] PPO MEDICARE PART A & B [facility] OUT OF STATE PPO MEDICARE PART A & B [facility] OUT OF [facility] PPO MEDICARE [facility] A & B [facility] OUT [facility] PPO MEDICARE [facility] A & B [facility] OUT OF STATE PPO MEDICARE PART A & B [facility] PPO Care Teams Transverse Abdominal Muscle Surgeon Relationship Specialty Start Date End Date Lianet Mayer MD [address] [place] [address] PCP - General Pediatrics 10/01/15 Additional Source Comments The information contained in this document represents components of the legal health record. It is not the complete legal health record.[facility]
== END 2025-05-28 13:00 | disposition home or self-care (01) ==
LOC: HO.HMCFM 11:11
PROVIDERS: PCP Family Medicine; Visit Provider Family Medicine
DX: I10 Essential (primary) hypertension (principal)

== ENCOUNTER → 2025-05-28 11:10 | Outpatient (BNVA) | payer MEDICARE, BC, SELFPAY | PROVIDERS: PCP Family Medicine; Visit Provider Family Medicine | DX: I10 Essential (primary) hypertension (principal) | CPT/HCPCS: 99212 ==